=== PATIENT | female | born 1970 | race Caucasian/White ===

== ENCOUNTER → 2017-03-09 | Emergency (ER) | payer OTHER ==
[~2017-03-09] MED LIST: Acetaminophen TAB* 325 MG PO ONE
--- NOTE | 2017-03-09 12:31 | RAD ---
INDICATION: Right shoulder pain. TECHNIQUE: 4 views of the right shoulder were obtained. FINDINGS: The bones are in normal alignment. No fracture is seen. Joint spaces appear maintained. IMPRESSION: NEGATIVE EXAM.
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
[2017-03-09 12:48] VITALS: BP 134/75
== END | disposition home or self-care (01) ==
LOC: ED 10:34
DX: M79.601 Pain in right arm (principal); Z87.891 Personal history of nicotine dependence
CPT/HCPCS: 99282; A9270-GY

== ENCOUNTER 2017-03-12 16:09 | Emergency (ER) | payer SELFPAY ==
[2017-03-12] MEDS ORDERED: Ketorolac INJ* 60 MG/2 ML VIAL IM ONE (16:22)
[2017-03-12 16:23] VITALS: BP 127/51
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
== END 2017-03-12 17:14 | disposition home or self-care (01) ==
LOC: ED 16:09
DX: S99.921A Unspecified injury of right foot, initial encounter (principal); M79.671 Pain in right foot; Z87.891 Personal history of nicotine dependence; X58.XXXA Exposure to other specified factors, initial encounter; Y93.9 Activity, unspecified; Y92.9 Unspecified place or not applicable
CPT/HCPCS: 96372; 99281; J1885

== ENCOUNTER 2017-06-01 20:26 | Emergency (ER) | payer OTHER ==
[2017-06-01] MEDS ORDERED: Meclizine TAB* 12.5 MG PO ONE (22:06)
[2017-06-01 22:17] LABS: Hematocrit 35 % (35-47); Hemoglobin 11.8 g/dl (12.0-16.0); Mean Corpuscular HGB Conc 33 g/dl (31-36); Mean Corpuscular Hemoglobin 29 pg (27-31); Mean Corpuscular Volume 85 fL (80-97); Mean Platelet Volume 8 um3 (7.4-10.4); Red Blood Count 4.13 10^6/ul (4.0-5.4); Red Cell Distribution Width 14 % (10.5-15); White Blood Count 11.1 10^3/ul (3.5-10.8)
[2017-06-01 22:27] LABS: Urine Bacteria 3+ (Absent); Urine Bilirubin Negative (Negative); Urine Glucose Negative (Negative); Urine Nitrite Positive (Negative)
[2017-06-01 22:28] LABS: Albumin 3.9 g/dL (3.2-5.2); Calcium 9.2 mg/dL (8.6-10.3); EGFR African American 96.5 (>60); EGFR Non-African American 75.1 (>60); Globulin 3.3 g/dL (2-4); Potassium 2.9 mmol/L (3.5-5.0); Total Bilirubin 0.4 mg/dL (0.2-1.0); Total Protein 7.2 g/dL (6.4-8.9)
[2017-06-01 22:41] LABS: TSH (Thyroid Stimulating Horm) 0.86 mcIU/mL (0.34-5.60)
[2017-06-01 23:06] VITALS: BP 118/49
--- NOTE | 2017-06-01 23:11 | ED ---
I, Oh,Soohtoro, scribed for Fernando Givens MD on 06/01/17 at 2149 . Dizziness - HPI Summary HPI Summary: This 46 y/o female presents to ED for room spinning dizziness at 1645 PM today. 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 Negative tinnitus. Positive midsternal chest pain, but pt dismisses stating that CP has been recurrent since her childhood. Pt decided to visit ED due to her concern over room spinning dizziness. Change of position does not worsen the dizziness. Closing eyes makes the dizziness worse. - History Of Current Complaint Chief Complaint: EDChestPainROMI Stated Complaint: CHEST PAIN Time Seen by Provider: 06/01/17 20:37 Hx Obtained From: Patient, Medical Records Onset/Duration: Resolved Timing: Intermittent Episode Lasting Character: Room Spinning Aggravating Factor(s): Other - closing her eyes Alleviating Factor(s): Nothing Associated Signs And Symptoms: Positive: Chest Pain. Negative: Tinnitus, Fever - Allergies/Home Medications Allergies/Adverse Reactions: Allergies Allergy/AdvReac Type Severity Reaction Status Date / Time Adhesive Tape Allergy Severe rash, itchy Verified 05/06/17 12:01 control Allergy Severe nauseated Uncoded 05/06/17 12:01 PMH/Surg Hx/FS Hx/Imm Hx Endocrine/Hematology History: Reports: Hx Thyroid Disease, Hx Anemia - hx of blood transfusion Denies: Hx Diabetes Cardiovascular History: Reports: Hx Hypertension Denies: Hx Pacemaker/ICD GI History: Reports: Hx Gastroesophageal Reflux Disease History: Reports: Hx Kidney Stones - in past , none recent Denies: Hx Dialysis, Hx Renal Disease Musculoskeletal History: Reports: Hx Arthritis - OSTEOARTHRITIS Sensory History: Reports: Hx Contacts or Glasses Denies: Hx Hearing Aid Opthamlomology History: Reports: Hx Contacts or Glasses Neurological History: Reports: Other Neuro Impairments/Disorders - DEVELOPMENTAL DELAY Psychiatric History: Denies: Hx Panic Disorder - Cancer History Hx Chemotherapy: No - Surgical History Surgery Procedure, Year, and Place: OVARY REMOVED AGE 15 FOR CYST. TOTAL HYSTERECTOMY DUE TO CERVICAL CA 2000. EXPLORATORY SURGERY 2003. GALLBLADDER 2013 Hx Anesthesia Reactions: No Infectious Disease History: No Infectious Disease History: Denies: Traveled Outside the [place] in Last 30 Days - Family History Known Family History: Positive: Cardiac Disease - Social History Alcohol Use: None Substance Use Type: Reports: None Smoking Status (MU): Former Smoker Amount Used/How Often: smoked for 4 years 3-4 cig a day Review of Systems Negative: Fever Negative: Other - tinnitus Positive: Chest Pain - acute on recurrent Neurological: Other - Positive for room-spinning dizziness All Other Systems Reviewed And Are Negative: Yes Physical Exam Triage Information Reviewed: Yes Vital Signs On Initial Exam: Initial Vitals Temp Pulse Resp BP Pulse Ox 98.0 F 68 16 130/65 100 06/01/17 20:47 06/01/17 20:47 06/01/17 20:47 06/01/17 20:47 06/01/17 20:47 Vital Signs Reviewed: Yes Appearance: Positive: Well-Appearing, No Pain Distress Skin: Positive: Warm, Skin Color Reflects Adequate Perfusion Head/Face: Positive: Normal Head/Face Inspection Eyes: Positive: EOMI, FAB Neck: Positive: Supple, Nontender Respiratory/Lung Sounds: Positive: Clear to Auscultation, Breath Sounds Present Cardiovascular: Positive: RRR, Pulses are Symmetrical in both Upper and Lower Extremities Abdomen Description: Positive: Nontender, Soft Musculoskeletal: Positive: Strength/ROM Intact Neurological: Positive: Sensory/Motor Intact, Alert, Oriented to Person Place, Time Psychiatric: Positive: Affect/Mood Appropriate AVPU Assessment: Alert - Eros Coma Scale Coma Scale Total: 15 Diagnostics - Vital Signs Vital Signs Temp Pulse Resp BP Pulse Ox 06/01/17 20:53 72 06/01/17 20:47 98.0 F 68 16 130/65 100 - Laboratory Lab Results: Lab Results 06/01/17 06/01/17 06/01/17 Range/Units 21:30 21:30 21:30 WBC 11.1 H (3.5-10.8) 10^3/ul RBC 4.13 (4.0-5.4) 10^6/ul Hgb 11.8 L (12.0-16.0) g/dl Hct 35 (35-47) % MCV 85 (80-97) fL MCH 29 (27-31) pg MCHC 33 (31-36) g/dl RDW 14 (10.5-15) % Plt Count 377 (150-450) 10^3/ul MPV 8 (7.4-10.4) um3 Neut % (Auto) 71.0 (38-83) % Lymph % (Auto) 20.1 L (25-47) % Lasalle % (Auto) 6.6 (1-9) % Eos % (Auto) 1.8 (0-6) % Baso % (Auto) 0.5 (0-2) % Absolute Neuts (auto) 7.9 H (1.5-7.7) 10^3/ul Absolute Lymphs (auto) 2.2 (1.0-4.8) 10^3/ul Absolute Monos (auto) 0.7 (0-0.8) 10^3/ul Absolute Eos (auto) 0.2 (0-0.6) 10^3/ul Absolute Basos (auto) 0.1 (0-0.2) 10^3/ul Absolute Nucleated RBC 0.01 10^3/ul Nucleated RBC % 0.1 Sodium 138 (133-145) mmol/L Potassium 2.9 L (3.5-5.0) mmol/L Chloride 101 (101-111) mmol/L Carbon Dioxide 28 (22-32) mmol/L Anion Gap 9 (2-11) mmol/L BUN 18 (6-24) mg/dL Creatinine 0.82 (0.51-0.95) mg/dL Est GFR ( Amer) 96.5 (>60) Est GFR (Non-Af Amer) 75.1 (>60) BUN/Creatinine Ratio 22.0 H (8-20) Glucose 122 H (70-100) mg/dL Lactic Acid 1.7 (0.5-2.0) mmol/L Calcium 9.2 (8.6-10.3) mg/dL Magnesium 2.0 (1.9-2.7) mg/dL Total Bilirubin 0.40 (0.2-1.0) mg/dL AST 19 (13-39) U/L ALT 22 (7-52) U/L Alkaline Phosphatase 90 (34-104) U/L Troponin I 0.00 (<0.04) ng/mL Total Protein 7.2 (6.4-8.9) g/dL Albumin 3.9 (3.2-5.2) g/dL Globulin 3.3 (2-4) g/dL Albumin/Globulin Ratio 1.2 (1-3) TSH 0.86 (0.34-5.60) mcIU/mL Urine Color Urine Appearance Urine pH (5-9) Ur Specific Lenore (1.010-1.030) Urine Protein (Negative) Urine Ketones (Negative) Urine Blood (Negative) Urine Nitrate (Negative) Urine Bilirubin (Negative) Urine Urobilinogen (Negative) Ur Leukocyte Esterase (Negative) Urine WBC (Auto) (Absent) Urine RBC (Auto) (Absent) Ur Squamous Epith Cells (Absent) Amorphous Crystals (Absent) Urine Bacteria (Absent) Urine Glucose (Negative) 06/01/17 Range/Units 21:50 WBC (3.5-10.8) 10^3/ul RBC (4.0-5.4) 10^6/ul Hgb (12.0-16.0) g/dl Hct (35-47) % MCV (80-97) fL MCH (27-31) pg MCHC (31-36) g/dl RDW (10.5-15) % Plt Count (150-450) 10^3/ul MPV (7.4-10.4) um3 Neut % (Auto) (38-83) % Lymph % (Auto) (25-47) % Lasalle % (Auto) (1-9) % Eos % (Auto) (0-6) % Baso % (Auto) (0-2) % Absolute Neuts (auto) (1.5-7.7) 10^3/ul Absolute Lymphs (auto) (1.0-4.8) 10^3/ul Absolute Monos (auto) (0-0.8) 10^3/ul Absolute Eos (auto) (0-0.6) 10^3/ul Absolute Basos (auto) (0-0.2) 10^3/ul Absolute Nucleated RBC 10^3/ul Nucleated RBC % Sodium (133-145) mmol/L Potassium (3.5-5.0) mmol/L Chloride (101-111) mmol/L Carbon Dioxide (22-32) mmol/L Anion Gap (2-11) mmol/L BUN (6-24) mg/dL Creatinine (0.51-0.95) mg/dL Est GFR ( Amer) (>60) Est GFR (Non-Af Amer) (>60) BUN/Creatinine Ratio (8-20) Glucose (70-100) mg/dL Lactic Acid (0.5-2.0) mmol/L Calcium (8.6-10.3) mg/dL Magnesium (1.9-2.7) mg/dL Total Bilirubin (0.2-1.0) mg/dL AST (13-39) U/L ALT (7-52) U/L Alkaline Phosphatase (34-104) U/L Troponin I (<0.04) ng/mL Total Protein (6.4-8.9) g/dL Albumin (3.2-5.2) g/dL Globulin (2-4) g/dL Albumin/Globulin Ratio (1-3) TSH (0.34-5.60) mcIU/mL Urine Color Yellow Urine Appearance Cloudy Urine pH 5.0 (5-9) Ur Specific Lenore 1.006 L (1.010-1.030) Urine Protein 1+(30 mg/dl) H (Negative) Urine Ketones Negative (Negative) Urine Blood 2+ H (Negative) Urine Nitrate Positive H (Negative) Urine Bilirubin Negative (Negative) Urine Urobilinogen Negative (Negative) Ur Leukocyte Esterase 3+ H (Negative) Urine WBC (Auto) 3+(>20/hpf) H (Absent) Urine RBC (Auto) Absent (Absent) Ur Squamous Epith Cells Present H (Absent) Amorphous Crystals Present H (Absent) Urine Bacteria 3+ H (Absent) Urine Glucose Negative (Negative) Result Diagrams: 06/01/17 21:30 06/01/17 21:30 Lab Statement: Any lab studies that have been ordered have been reviewed, and results considered in the medical decision making process. - CT Brain CT Interpretation: No Acute Changes - No acute ozzie parenchymal abnormality. No hemorrhage, mass, or acute territorial infarct. Clear visualized paranasal sinuses. Visualized mastoid air cells clear. CT Interpretation Completed By: Radiologist - EKG 2043 Cardiac Rate: NL - at 67 bpm EKG Rhythm: Sinus Rhythm EKG Interpretation: Nonspecific changes Dizzy Course/Dx - Course Course Of Treatment: Ms. Carrington told me she has had CP since she was a teenager and that that's not why she's here. She C/O the room spinning when she closed her eyes. Her W/U was negative and her symptoms resolved with meclizine as did her nystagmus. Her urine is equivocal and I will treat it awaiting C&S. - Diagnoses Provider Diagnoses: Vertigo, UTI (urinary tract infection) Discharge - Discharge Plan Condition: Stable Disposition: HOME Patient Education Materials: Vertigo (ED), Urinary Tract Infection in Women (ED ) Referrals: Amira Fernández, MARINE SERVICES TECHNICIAN [Primary Care Provider] - 2 Days The documentation as recorded by the Victor Manuel pina Soohyun accurately reflects the service I personally performed and the decisions made by me, Fernando Givens MD.
--- NOTE | 2017-06-02 07:20 | RAD ---
INDICATION: Vertigo COMPARISON: There are no prior studies available for comparison. TECHNIQUE: Contiguous axial sections of the brain were obtained from the skull base to the vertex without contrast. FINDINGS: The ventricles, cisterns and sulci are within normal limits. No significant focal abnormality or mass effect is seen. There is no evidence for hemorrhage. No significant focal osseous abnormality is seen. The visualized portion of the paranasal sinuses and mastoid air cells appear clear. IMPRESSION: NO EVIDENCE FOR GROSS ACUTE INFARCT, MASS EFFECT OR HEMORRHAGE.
== END 2017-06-01 23:06 | disposition home or self-care (01) ==
LOC: ED 20:26
DX: N39.0 Urinary tract infection, site not specified (principal); R07.9 Chest pain, unspecified; R42 Dizziness and giddiness; Z87.891 Personal history of nicotine dependence; Z86.79 Personal history of other diseases of the circulatory system
CPT/HCPCS: 36415; 70450; 80053; 81003; 81015; 83605; 83735; 84443; 84484; 85025; 87077; 87086; 87186; 93005; 99283; A9270-GY

== ENCOUNTER 2017-11-05 16:02 | Emergency (ER) | payer OTHER ==
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
--- NOTE | 2017-11-05 17:21 | RAD ---
Indication: Right Knee pain after fall. 3 views of the right knee demonstrates no fracture. No other bone or joint abnormality is noted. There is suggestion of a loose body present in the joint space. IMPRESSION: No fracture is noted. Suggestion of a loose body in the joint space.
[2017-11-05] MEDS ORDERED: Acetaminophen TAB* 325 MG PO ONE (17:47)
[2017-11-05 18:09] VITALS: BP 139/87
--- NOTE | 2017-11-05 18:12 | ED ---
Rolf Mendez Gabriel, scribed for Manuel Jimenez MD on 11/05/17 at 1617 . Lower Extremity - HPI Summary HPI Summary: This patient is a 47 year old F BBIA to [facility] s/p mechanical fall that occurred [employer]. Patient was walking up onto a curb when her left leg gave out. The patient rates the pain 6/10 in severity. Patient reports right sided pain at jaw, elbow , knee, face, and hand as well as tingling in her right hand. Patient had a CVA a few months ago. Patient is currently able to ambulate. - History of Current Complaint Chief Complaint: EDExtremityLower Stated Complaint: FALL Time Seen by Provider: 11/05/17 16:09 Hx Obtained From: Patient Mechanism Of Injury: Fall From A Standing Position Onset of Pain: Immediate Onset/Duration: Still Present Severity Initially: Moderate Severity Currently: Moderate Pain Intensity: 6 Pain Scale Used: 0-10 Numeric Timing: Constant Location: Is Diffuse - right side of body Alleviating Factor(s): Other - right sided pain at jaw, elbow, knee, face, and hand as well as tingling in her right hand Able to Bear Weight: Yes - Allergies/Home Medications Allergies/Adverse Reactions: Allergies Allergy/AdvReac Type Severity Reaction Status Date / Time Adhesive Tape Allergy Severe rash, itchy Verified 05/06/17 12:01 control Allergy Severe nauseated Uncoded 05/06/17 12:01 PMH/Surg Hx/FS Hx/Imm Hx Endocrine/Hematology History: Reports: Hx Thyroid Disease, Hx Anemia - hx of blood transfusion Denies: Hx Diabetes Cardiovascular History: Reports: Hx Hypertension Denies: Hx Pacemaker/ICD GI History: Reports: Hx Gastroesophageal Reflux Disease History: Reports: Hx Kidney Stones - in past , none recent Denies: Hx Dialysis, Hx Renal Disease Musculoskeletal History: Reports: Hx Arthritis - OSTEOARTHRITIS Sensory History: Reports: Hx Contacts or Glasses Denies: Hx Hearing Aid Opthamlomology History: Reports: Hx Contacts or Glasses Neurological History: Reports: Hx CVA, Other Neuro Impairments/Disorders - DEVELOPMENTAL DELAY Psychiatric History: Denies: Hx Panic Disorder - Cancer History Hx Chemotherapy: No - Surgical History Surgery Procedure, Year, and Place: OVARY REMOVED AGE 15 FOR CYST. TOTAL HYSTERECTOMY DUE TO CERVICAL CA 2000. EXPLORATORY SURGERY 2003. GALLBLADDER 2013 Hx Anesthesia Reactions: No Infectious Disease History: No Infectious Disease History: Denies: Traveled Outside the [place] in Last 30 Days - Family History Known Family History: Positive: Cardiac Disease - Social History Alcohol Use: None Substance Use Type: Reports: None Smoking Status (MU): Former Smoker Amount Used/How Often: smoked for 4 years 3-4 cig a day Review of Systems Positive: Other - right sided pain at jaw, elbow, knee, face Positive: Paresthesia - in right hand All Other Systems Reviewed And Are Negative: Yes Physical Exam - Summary Physical Exam Summary: VITAL SIGNS: Reviewed. GENERAL: Patient is a well-developed and nourished female who is lying comfortable in the stretcher. Patient is not in any acute respiratory distress. HEAD AND FACE: Swelling in the right side of face around the right side of the orbit accompanied by some swelling.. EYES: PERRLA, EOMI x 2, No injected conjunctiva, no nystagmus. EARS: Hearing grossly intact. Ear canals and tympanic membranes are within normal limits. MOUTH: Oropharynx within normal limits. NECK: Supple, trachea is midline, no adenopathy, no JVD, no carotid bruit, no c- spine tenderness, neck with full ROM. CHEST: Symmetric, no tenderness at palpation LUNGS: Clear to auscultation bilaterally. No wheezing or crackles. CVS: Regular rate and rhythm, S1 and S2 present, no murmurs or gallops appreciated. ABDOMEN: Soft, non-tender. No signs of distention. No rebound no guarding, and no masses palpated. Bowel sounds are normal. EXTREMITIES: Pain in the right knee without ecchymosis and deformity. Knee still has full ROM. Right hand/right elbow no swelling, ecchymosis, good ROM, good strength, good pulses NEURO: Alert and oriented x 3. No acute neurological deficits. Speech is normal and follows commands. SKIN: Dry and warm Triage Information Reviewed: Yes Vital Signs On Initial Exam: Initial Vitals Temp Pulse Resp BP Pulse Ox 98.1 F 79 18 147/98 100 11/05/17 16:10 11/05/17 16:10 11/05/17 16:10 11/05/17 16:10 11/05/17 16:10 Vital Signs Reviewed: Yes Diagnostics - Vital Signs Vital Signs Temp Pulse Resp BP Pulse Ox 11/05/17 16:10 98.1 F 79 18 147/98 100 - Laboratory Lab Statement: Any lab studies that have been ordered have been reviewed, and results considered in the medical decision making process. - Radiology knee xray Radiology Interpretation Completed By: Radiologist - No fracture is noted. Suggestion of a loose body in the joint space. ED physician has reviewed this radiology report. - CT ct maxillofacial CT Interpretation Completed By: Radiologist - No fracture of the facial bones is identified. ED physician has reviewed this radiology report. Lower Extremity Course/Dx - Course Assessment/Plan: This patient is a 47 year old F BBIA to [facility] s/p mechanical fall that occurred [employer]. Patient was walking up onto a curb when her left leg gave out. The patient rates the pain 6/10 in severity. Patient reports right sided pain at jaw, elbow, knee, face, and hand as well as tingling in her right hand. Patient had a CVA a few months ago. Patient is currently able to ambulate. .Patient is ambulatory and ambulates without difficulty. X-ray of knee reveals No fracture is noted. Suggestion of a loose body in the joint space. CT maxillofacial reveals, No fracture of the facial bones is identified. In the ED course patient was given Tylenol and will be discharged with follow up from PCP. Patient is hemodynamically stable and alert oriented x3. - Diagnoses Differential Diagnosis/HQI/PQRI: Positive: Contusion, Fracture (Closed), Sprain , Strain Provider Diagnoses: Facial contusion, mechanical fall, Knee pain Discharge - Discharge Plan Condition: Stable Disposition: HOME Patient Education Materials: Knee Pain (ED), Facial Contusion (ED) Referrals: Amira Fernández IGNITION SPECIALIST [Primary Care Provider] - 3 Days Additional Instructions: RETURN TO EMERGENCY DEPARTMENT FOR ANY NEW OR WORSENING SYMPTOMS The documentation as recorded by the Rolf pina Gabriel accurately reflects the service I personally performed and the decisions made by , Manuel Jimenez MD.
== END 2017-11-05 18:08 | disposition home or self-care (01) ==
LOC: ED 16:02
DX: S00.83XA Contusion of other part of head, initial encounter (principal); W10.1XXA Fall (on)(from) sidewalk curb, initial encounter; Y93.01 Activity, walking, marching and hiking; Y92.9 Unspecified place or not applicable; M25.561 Pain in right knee; Z88.8 Allergy status to other drugs, medicaments and biological substances; Z87.891 Personal history of nicotine dependence
CPT/HCPCS: 70486; 99282; A9270-GY

== ENCOUNTER 2017-12-07 09:51 | Inpatient (IN) | payer OTHER ==
--- NOTE | 2017-11-24 20:56 | HP ---
HISTORY AND PHYSICAL: DATE OF ADMISSION/SURGERY: 12/07/17 DATE OF OFFICE VISIT: 11/24/17 SURGEON: Katie Hall MD * (DICTATED BY LEXIS AGRAWAL) PROCEDURE: Left total hip arthroplasty. CHIEF COMPLAINT: Left hip pain. HISTORY OF PRESENT ILLNESS: Ms. Carrington is a 47-year-old female with left hip pain secondary to end-stage osteoarthritis. She has failed conservative management and elected to proceed with a left total hip arthroplasty, which is scheduled for 12/07/[address] Hall. PAST MEDICAL HISTORY: GERD, hypothyroidism, and history of cervical cancer. PAST SURGICAL HISTORY: Cholecystectomy, hysterectomy, oophorectomy, and exploratory laparoscopy. CURRENT MEDICATIONS: 1. Nabumetone 3 times a day. 2. Estradiol 1 mg. 3. Nortriptyline 50 mg. 4. Diphenhydramine 25 mg. 5. Vitamin D3. 6. Omeprazole 40 mg daily. 7. Hydrochlorothiazide 25 mg daily. 8. Levothyroxine 100 mcg daily. 9. Cholestyramine. ALLERGIES: None. FAMILY HISTORY: Lung cancer. SOCIAL HISTORY: She is a 47-year-old female. She lives with a roommate. She does not smoke or use drugs. She uses occasional alcohol. REVIEW OF SYSTEMS: A complete 14-point review of systems was reviewed with the patient, was positive for hypothyroidism and GERD. She denies history of DVT, PE, hepatitis C, or HIV. PHYSICAL EXAMINATION GENERAL: Well-developed, well-nourished, in no acute distress. VITAL SIGNS: She stands 5 feet 9 inches tall, weighs 185 pounds. Her blood pressure is 128/82 and her heart rate 79. HEENT: Normocephalic, atraumatic. NECK: Supple. No palpable lymph nodes. PULMONARY: The lungs are clear to auscultation bilaterally. CARDIO: Regular rate and rhythm. Strong S1, S2. ABDOMEN: Soft, nontender, and nondistended. MUSCULOSKELETAL: Left lower extremity, the skin is intact. There are no open wounds or abrasions. She walks with an antalgic type gait favoring her left hip. She has decreased internal and external rotation of the left hip, which reproduces pain. 2+ dorsalis pedis pulses. Intact sensation to lower extremities. Muscle group strengths are intact at 5/5. NEUROLOGICAL: She is alert and oriented x3. Cranial nerves II through XII are intact. ASSESSMENT AND PLAN: Ms. Carrington is a 47-year-old female with left hip pain secondary to advanced osteoarthritis. She has failed conservative management and has elected to proceed with the left total hip arthroplasty, which is scheduled for 12/07/[address] Hall discussed the risks and benefits of the surgery at today's visit and all of her questions were answered. Coumadin, Colace, and Percocet were sent to her pharmacy for postoperative pain control and DVT prophylaxis. She will see Dr. Hall back in 2 weeks after the surgery. LEXIS AGRAWAL [id number]/[facility] #: [id number] MTDD
[~2017-12-07 09:51] MED LIST changes: -Acetaminophen TAB* 325 MG PO ONE; +Buffered Lidocaine 0.9% SYRIN* 5 ML/SYR SYRINGE INTRADERM ONE
[2017-12-07] MEDS ORDERED: ceFAZolin 2 GM (*##) 2 GM/100 ML BAG USE CEFA2SOL IVPB ONE (10:22)
[2017-12-07] MEDS ORDERED: Buffered Lidocaine 0.9% SYRIN* 5 ML/SYR SYRINGE ONE (10:22)
[2017-12-07] MEDS ORDERED: Midazolam* 1 MG/ML 5 ML VIAL (5 MG) ONE (12:23)
[2017-12-07] MEDS ORDERED: fentaNYL* 50 MCG/ML 2 ML VIAL (100 MCG VIAL) ONE (12:23)
--- NOTE | 2017-12-07 12:40 | RAD ---
INDICATION: Right knee pain COMPARISON: November 05, 2017 TECHNIQUE: AP, lateral, and sunrise were obtained. FINDINGS: There is no acute bony change. There is minor patellofemoral osteoarthritis. There is a possible small loose body. There is no definite effusion. No additional findings. IMPRESSION: NO ACUTE FRACTURE. MINOR OSTEOARTHRITIS
[2017-12-07] MEDS ORDERED: Morphine PF AMP (0.5MG/ML)* 5 MG/10 ML AMP ONE (13:49)
[2017-12-07] MEDS ORDERED: Propofol* 10 MG/ML 20 ML BTL IV PUSH ONE (14:07)
[2017-12-07] MEDS ORDERED: Bupivacaine 0.5% SDV PF* 10-30ML VIAL ONE (14:08)
[2017-12-07] MEDS ORDERED: EPHEDrine (Pressors)* 50 MG/ML VIAL ONE ×2 (14:23→14:52)
[2017-12-07] MEDS ORDERED: Polyethylene Glycol 3350* 17 GM PACKET PO PRN (14:30)
[2017-12-07] MEDS ORDERED: Bisacodyl SUPP* 10 MG SUPP PR PRN (14:30)
[2017-12-07] MEDS ORDERED: Magnesium Hydroxide LIQ* 30 ML UDC PO PRN (14:30)
[2017-12-07] MEDS ORDERED: Acetaminophen TAB* 325 MG PO PRN (14:30)
[2017-12-07] MEDS ORDERED: diPHENhydraMINE IV* 50 MG/ML 1 ml VIAL (BENADRYL) IV PRN ×2 (14:30→14:43)
[2017-12-07] MEDS ORDERED: Cyclobenzaprine TAB* 10 MG PO PRN (14:30)
[2017-12-07] MEDS ORDERED: Ondansetron INJ* 2 MG/ML VIAL IV PRN ×2 (14:43)
[2017-12-07] MEDS ORDERED: HYDROmorphone INJ* 1 MG/ML CARPUJECT SYRINGE IV PRN (14:43)
[2017-12-07] MEDS ORDERED: DiMENhydriNATE IV* 50 MG/ML VIAL IV PUSH PRN (14:43)
[2017-12-07] MEDS ORDERED: HYDROcodone/ACETAMIN 5-325 MG* 1 TAB PO PRN (14:43)
[2017-12-07] MEDS ORDERED: fentaNYL* 50 MCG/ML 2 ML VIAL (100 MCG VIAL) IV PRN (14:43)
[2017-12-07] MEDS ORDERED: Metoclopramide IV* 5 MG/ML 2 ML VIAL IV PRN ×2 (14:43)
[2017-12-07] MEDS ORDERED: Nalbuphine* 20 MG/ML 1 ML VIAL IV PRN (14:43)
[2017-12-07] MEDS ORDERED: Naloxone* 0.4 MG/ML 1 ML VIAL IV PRN ×2 (14:43)
[2017-12-07] MEDS ORDERED: ceFAZolin 1 GM in Dextrose (*) 1 GM/50 ML BAG IVPB SCH (15:00)
[2017-12-07] MEDS ORDERED: diPHENhydraMINE IV* 50 MG/ML 1 ml VIAL (BENADRYL) ONE (16:54)
[2017-12-07] MEDS ORDERED: Ondansetron INJ* 2 MG/ML VIAL ONE (17:19)
[2017-12-07] MEDS ORDERED: DiMENhydriNATE IV* 50 MG/ML VIAL ONE (17:43)
--- NOTE | 2017-12-07 18:00 | RAD ---
Indication: LEFT total hip replacement. Comparison: November 10, 2017 Technique: Crosstable AP pelvis and LEFT proximal femur Report: Acetabular prosthetic component and femur test fit/reamer component in place. No periprosthetic fracture evident. Surrounding soft tissue edema and subcutaneous emphysema. IMPRESSION: Intraoperative control film.
--- NOTE | 2017-12-07 19:13 | RAD ---
Indication: Postop LEFT hip replacement. Comparison: Intraoperative exam of the same date. Technique: Low AP pelvis and AP and crosstable lateral views LEFT hip. Report: Noncemented LEFT total hip prosthesis in place with normal alignment. No periprosthetic fracture evident. Overlying soft tissue edema and subcutaneous emphysema. Bilateral pelvic surgical clips. IMPRESSION: Unremarkable immediate postop appearance following LEFT total hip replacement.
[2017-12-07] MEDS ORDERED: Warfarin TAB(*) 6 MG PO ONE (20:00)
[2017-12-07] MEDS: Nortriptyline CAP* 25 MG PO SCH (20:59)
[2017-12-07] MEDS: Omeprazole CAP* 20 MG PO SCH (21:00)
[2017-12-07] MEDS: Docusate CAP* 100 MG PO SCH (21:02)
[2017-12-07] MEDS: Magnesium Hydroxide LIQ* 30 ML UDC PO SCH (21:02)
[2017-12-07] MEDS: ceFAZolin 1 GM* Q8H x 3 doses IVPB SCH ×2 (22:05)
[2017-12-08] MEDS: HYDROcodone/ACETAMIN 5-325 MG* 1 TAB PO PRN ×2 (00:19→05:46)
[2017-12-08] MEDS: Levothyroxine TAB* 100 MCG TAB PO SCH (05:47)
[2017-12-08 05:48] LABS: Hematocrit 29 % (35-47); Hemoglobin 9.7 g/dl (12.0-16.0); Mean Platelet Volume 8 um3 (7.4-10.4); Platelet Count 237 10^3/ul (150-450)
[2017-12-08] MEDS: ceFAZolin 1 GM* Q8H x 3 doses IVPB SCH ×4 (05:54→14:22)
[2017-12-08] MEDS ORDERED: Morphine INJ* 2 MG/ML 1 ML CARPUJECT IV PRN (05:55)
[2017-12-08] MEDS ORDERED: Ondansetron TAB* 4 MG PO PRN (05:55)
[2017-12-08] MEDS ORDERED: oxyCODONE TAB* 5 MG TAB PO PRN (05:55)
[2017-12-08] MEDS ORDERED: diPHENhydraMINE IV* 50 MG/ML 1 ml VIAL (BENADRYL) IV PRN (05:55)
[2017-12-08] MEDS ORDERED: Ondansetron INJ* 2 MG/ML VIAL IV PRN (05:55)
[2017-12-08 05:58] LABS: INR 0.94 (0.77-1.02)
[2017-12-08 06:04] LABS: EGFR Non-African American 85.5 (>60)
[2017-12-08] MEDS: Magnesium Hydroxide LIQ* 30 ML UDC PO SCH ×2 (08:08→20:46)
[2017-12-08] MEDS: Omeprazole CAP* 20 MG PO SCH ×3 (08:09→20:22)
[2017-12-08] MEDS: Docusate CAP* 100 MG PO SCH ×2 (08:09→20:46)
[2017-12-08] MEDS: Hydrochlorothiazide TAB* 25 MG PO SCH (08:09)
[2017-12-08] MEDS: oxyCODONE/Acetamin 5/325 MG* TAB PO PRN ×3 (09:03→19:22)
[2017-12-08] MEDS: ESTRADIOL 1 MG PO SCH ×2 (09:04→17:13)
--- NOTE | 2017-12-08 10:06 | PN ---
Progress Note - Progress Note Date of Service: 12/08/17 SOAP: Subjective: [] Patient seen OOB in chair. She reports left hip pain but is reasonably comfortable. Denies CP, SOB, fever, chills, nausea, dizziness and leg numbness. Objective: [] Vital Signs Temp 98.5 F 12/08/17 08:06 Pulse 71 12/08/17 08:06 Resp 20 12/08/17 09:03 BP 122/43 12/08/17 08:06 Pulse Ox 94 12/08/17 08:06 Intake & Output 12/07/17 12/08/17 12/08/17 18:59 06:59 18:59 Intake Total 2325 1298 246 Output Total 550 350 Balance 1775 948 246 Weight 184 lb Intake: IV Fluids 2300 948 246 ABX - CEFAZOLIN 50 LR 2300 948 196 IVPB 50 ABX - CEFAZOLIN 50 Oral 25 300 Output: Bah 350 350 Estimated Blood Loss 200 Laboratory Last Values Hgb 9.7 g/dl (12.0-16.0) L 12/08/17 05:05 Hct 29 % (35-47) L 12/08/17 05:05 Plt Count 237 10^3/ul (150-450) 12/08/17 05:05 MPV 8 um3 (7.4-10.4) 12/08/17 05:05 INR (Anticoag Therapy) 0.94 (0.77-1.02) 12/08/17 05:05 Sodium 138 mmol/L (133-145) 12/08/17 05:05 Potassium 3.9 mmol/L (3.5-5.0) 12/08/17 05:05 Chloride 104 mmol/L (101-111) 12/08/17 05:05 Carbon Dioxide 30 mmol/L (22-32) 12/08/17 05:05 Anion Gap 4 mmol/L (2-11) 12/08/17 05:05 BUN 21 mg/dL (6-24) 12/08/17 05:05 Creatinine 0.73 mg/dL (0.51-0.95) 12/08/17 05:05 Est GFR ( Amer) 109.9 (>60) 12/08/17 05:05 Est GFR (Non-Af Amer) 85.5 (>60) 12/08/17 05:05 BUN/Creatinine Ratio 28.8 (8-20) H 12/08/17 05:05 Glucose 108 mg/dL (70-100) H 12/08/17 05:05 Calcium 8.2 mg/dL (8.6-10.3) L 12/08/17 05:05 General: Well appearing, NAD LLE: Left hip with dressing CDI, no surrounding erythema. Thigh is soft and supple. DF/PF intact. 2+ DP pulse. Sensation intact distally. Capillary refill less than 2 seconds BL LE: Calves supple and nontender without erythema, edema or palpable cords. Assessment: []POD 1 SP left total hip arthroplasty 12/07, Dr Hall Plan: []WBAT PT/OT Lovenox, coumadin 6 mg today Plan for DC tomorrow
[2017-12-08] MEDS: Enoxaparin(*) 30 MG/0.3 ML SYR SUBCUT SCH (12:06)
[2017-12-08] MEDS ORDERED: Warfarin TAB(*) 6 MG PO ONE (17:00)
[2017-12-08] MEDS: CHOLESTYRAMINE RESIN PO SCH (20:25)
[2017-12-08] MEDS: Nortriptyline CAP* 25 MG PO SCH (20:46)
[2017-12-08] MEDS: diPHENhydraMINE PO* 25 MG PO SCH (20:46)
--- NOTE | 2017-12-08 23:05 | OP ---
DATE OF OPERATION: 12/07/17 - ROOM #332 DATE OF : 70 SURGEON: Katie Hall MD MEDICAL LABORATORY SCIENTIST: LEXIS Velez. Mr. Fraire did help throughout the procedure with preparation of the leg, wound retraction, manipulation of the hip, and wound closure. ANESTHESIOLOGIST: Zoe Mercer MD ANESTHESIA: Spinal. PRE-OP DIAGNOSIS: Severe end-stage degenerative osteoarthritis of the left hip joint. POST-OP DIAGNOSIS: Severe end-stage degenerative osteoarthritis of the left hip joint. OPERATIVE PROCEDURE: Left total hip arthroplasty. INDICATIONS: Ms. Carrington is a 47-year-old female with years of increasingly severe left hip pain. She failed conservative treatment with anti- inflammatories, physical therapy, and pain medications. Radiographs showed bone -on-bone arthritis. Due to continued pain and decreased quality of life, she elected to undergo left total hip arthroplasty. Informed consent was obtained from the patient. She understood the risks of surgery included, but were not limited to, bleeding, infection, damage to nearby structures, continued pain, need for further surgery, intraoperative fracture, nerve palsy, hardware failure or loosening, dislocation, leg length discrepancy, stroke, heart attack , blood clot, and . She wished to proceed. COMPLICATIONS: None. ESTIMATED BLOOD LOSS: 300 cc. SPECIMEN: Femoral head and acetabular reaming sent to Pathology. HARDWARE USED: This is uncemented [place] total hip hardware for the acetabular cup 50D Tritanium hemispherical shell. For the liner, a polyethylene 0-degree Trident X3 32D. For the stem, an Accolade TMZF size 2.5 with 127-degree neck. For the head, a Biolox ceramic V40 femoral head 32 +4. INTRAOPERATIVE FINDINGS: Intraoperatively, the patient was noted to have severe end-stage arthritis with complete loss of cartilage in the acetabulum and femoral head. She had significant acetabular osteophytes along the rim especially inferiorly. DESCRIPTION OF PROCEDURE: Ms. Carrington was identified in the preanesthesia unit. Her left lower extremity was marked as the correct operative side. Informed consent was signed and placed in the chart. The patient was taken to the operating room and placed under spinal anesthesia without difficulty. A Bah catheter was placed. The patient was placed in the right lateral decubitus position on the peg board with all bony prominences well padded. Left lower extremity was prepped and draped in the usual sterile fashion. Preop time-out was made to correctly identify the patient, side, and site. Appropriate perioperative antibiotics were given within 1 hour of incision. A 12-cm posterior hip incision was made with a 10 blade and carried down to the lateral fascial layer. Lateral fascial layer was incised in line with the skin incision. Charnley retractor was placed. The piriformis and conjoint tendons were identified. These were elevated off the posterolateral femur and tagged with Ethibond suture. Next, electrocautery was used to make a standard posterolateral capsular flap and this was also tagged with Ethibond suture. The hip was carefully dislocated. Lesser troch to center to the femoral head measured 58 mm. Oscillating saw was used to make the appropriate femoral neck cut. The femoral head was removed. Femur was carefully retracted anteriorly. After appropriate placement of the retractor, the acetabulum was well visualized. A long-handled knife was used to sharply remove any remaining labrum from the acetabular rim. The acetabulum did have significant osteophyte formation around it. The acetabulum was sequentially reamed up to a size 49. Bleeding subchondral bone was obtained. A 49 trial had good fit and stability. There was appropriate abduction angle and anteversion. A 50D Tritanium cluster hole shell was chosen. This was impacted into the acetabulum without difficulty. The shell was extremely stable. There was appropriate anteversion and abduction angles. A trial of X3 0-degree polyethylene liner 32D was chosen. This was impacted into the acetabulum without difficulty. Stability of the liner was checked and rechecked and noted to be stable. Next, attention was turned to preparation of the proximal femur. Box cut osteotome and canal finder were used to enter the proximal femur. The femur was sequentially broached up to a size 2.5. A 2.5 broach had excellent stability and appropriate anteversion. A 127 neck trial was chosen as well as a 32 +0 femoral head trial. Lesser troch to center of femoral head measured 53 mm. Therefore, the +4 head was chosen. Lesser troch to center of the femoral head measured 58 mm. The hip was reduced and taken through a range of motion. The hip was stable in all positions. Soft tissue tension and leg lengths were deemed to be appropriate. The hip was carefully dislocated. All trials were removed. Accolade TMZF size 2.5 with a 127-degree neck was chosen as the final implant. This was impacted into the femoral canal without difficulty. There was excellent stability and appropriate anteversion. A 32 +4 Biolox ceramic delta V40 femoral head was chosen and impacted onto the femoral neck. The hip was reduced and taken through range of motion. The hip was stable in all positions. The hip was copiously irrigated with sterile saline. Previously tagged tendons and capsule were reapproximated to the posterolateral femur through 2 trochanteric drill holes. The lateral fascial layer was closed using interrupted #1 Vicryls. The rest of the incision was closed in a layered fashion using 0 and 2-0 Vicryls. Skin was closed using running 3-0 Monocryl suture. A Dermabond was placed over this. Sterile Adaptic, 4x4s, and paper tape were used to cover the incision. The patient's anesthesia was reversed without difficulty. She was taken to the PACU in stable condition. Intended weightbearing with be weightbearing as tolerated. Intended DVT prophylaxis will be Coumadin with a Lovenox bridge. [id number]/[facility] #: [id number] DEBORAH
[2017-12-09 06:24] LABS: Hematocrit 26 % (35-47); Mean Platelet Volume 8 um3 (7.4-10.4); Platelet Count 224 10^3/ul (150-450)
[2017-12-09 07:04] LABS: INR 1.59 (0.77-1.02)
[2017-12-09] MEDS: Docusate CAP* 100 MG PO SCH ×2 (07:27→22:24)
[2017-12-09] MEDS: diPHENhydraMINE PO* 25 MG PO SCH ×2 (07:27→22:23)
[2017-12-09] MEDS: Hydrochlorothiazide TAB* 25 MG PO SCH (07:27)
[2017-12-09] MEDS: Levothyroxine TAB* 100 MCG TAB PO SCH (07:27)
[2017-12-09] MEDS: Omeprazole CAP* 20 MG PO SCH ×2 (07:28→17:23)
[2017-12-09] MEDS: oxyCODONE/Acetamin 5/325 MG* TAB PO PRN ×3 (07:28→22:25)
[2017-12-09] MEDS: ESTRADIOL 1 MG PO SCH (07:31)
[2017-12-09] MEDS: Magnesium Hydroxide LIQ* 30 ML UDC PO SCH ×2 (09:14→22:24)
[2017-12-09] MEDS: Enoxaparin(*) 30 MG/0.3 ML SYR SUBCUT SCH (11:14)
--- NOTE | 2017-12-09 11:38 | PN ---
Progress Note - Progress Note Date of Service: 12/09/17 SOAP: Subjective: []Patient is OOB in chair. She completed physical therapy this morning though she refused to attempt stairs due to pain and fear of heights. Prior to surgery she did use the stairs without difficulty with fear of heights. Patients pain is reported as a 9/10 before and after pain scale education. Denies CP, SOB, fever, chills, nausea or left leg numbness. Objective: [] Vital Signs Temp 99.4 F 12/09/17 03:22 Pulse 100 12/09/17 03:22 Resp 16 12/09/17 11:14 BP 104/51 12/09/17 03:22 Pulse Ox 98 12/09/17 03:22 Intake & Output 12/08/17 12/09/17 12/09/17 18:59 06:59 18:59 Intake Total 1151 360 400 Output Total 100 250 700 Balance 1051 110 -300 Intake: IV Fluids 321 ABX - CEFAZOLIN 105 LR 216 Oral 830 360 400 Output: Urine 100 250 700 Other: Estimated Void Small # Voids 2 Laboratory Last Values Hgb 9.0 g/dl (12.0-16.0) L 12/09/17 05:40 Hct 26 % (35-47) L 12/09/17 05:40 Plt Count 224 10^3/ul (150-450) 12/09/17 05:40 MPV 8 um3 (7.4-10.4) 12/09/17 05:40 INR (Anticoag Therapy) 1.59 (0.77-1.02) H 12/09/17 05:40 Sodium 138 mmol/L (133-145) 12/08/17 05:05 Potassium 3.9 mmol/L (3.5-5.0) 12/08/17 05:05 Chloride 104 mmol/L (101-111) 12/08/17 05:05 Carbon Dioxide 30 mmol/L (22-32) 12/08/17 05:05 Anion Gap 4 mmol/L (2-11) 12/08/17 05:05 BUN 21 mg/dL (6-24) 12/08/17 05:05 Creatinine 0.73 mg/dL (0.51-0.95) 12/08/17 05:05 Est GFR ( Amer) 109.9 (>60) 12/08/17 05:05 Est GFR (Non-Af Amer) 85.5 (>60) 12/08/17 05:05 BUN/Creatinine Ratio 28.8 (8-20) H 12/08/17 05:05 Glucose 108 mg/dL (70-100) H 12/08/17 05:05 Calcium 8.2 mg/dL (8.6-10.3) L 12/08/17 05:05 General: Sitting in chair. Well appearing, NAD. Eating breakfast appears comfortable LLE: Left hip with dressing CDI, no surrounding erythema. Thigh is soft and supple. DF/PF intact. 2+ DP pulse. Sensation intact distally. BL LE: Calves supple and nontender without erythema, edema or palpable cords. Assessment: []POD 2 SP left total hip arthroplasty 12/07, Dr Hall Plan: []WBAT PT/OT. Patient agrees to attempt the stairs this afternoon. Lovenox, coumadin 4 mg today Plan for DC to rehab when a bed is available
[2017-12-09] MEDS ORDERED: Warfarin TAB(*) 4 MG PO ONE (17:00)
[2017-12-09] MEDS: CHOLESTYRAMINE RESIN PO SCH (17:11)
[2017-12-09] MEDS ORDERED: CHOLESTYRAMINE RESIN PO SCH (18:00)
[2017-12-09] MEDS: Nortriptyline CAP* 25 MG PO SCH (22:23)
[2017-12-10 05:59] LABS: Hematocrit 26 % (35-47); Hemoglobin 8.7 g/dl (12.0-16.0); Mean Platelet Volume 8 um3 (7.4-10.4); Platelet Count 230 10^3/ul (150-450)
[2017-12-10 06:08] LABS: INR 2.8 (0.77-1.02)
[2017-12-10] MEDS: Docusate CAP* 100 MG PO SCH (07:44)
[2017-12-10] MEDS: Magnesium Hydroxide LIQ* 30 ML UDC PO SCH (07:44)
[2017-12-10] MEDS: diPHENhydraMINE PO* 25 MG PO SCH (07:45)
[2017-12-10] MEDS: Hydrochlorothiazide TAB* 25 MG PO SCH (07:45)
[2017-12-10] MEDS: Levothyroxine TAB* 100 MCG TAB PO SCH (07:46)
[2017-12-10] MEDS: Omeprazole CAP* 20 MG PO SCH (07:46)
[2017-12-10] MEDS: ESTRADIOL 1 MG PO SCH (07:47)
[2017-12-10] MEDS: oxyCODONE/Acetamin 5/325 MG* TAB PO PRN ×2 (07:47→13:40)
--- NOTE | 2017-12-10 10:50 | DS ---
DISCHARGE SUMMARY: DATE OF ADMISSION: 12/07/17 DATE OF DISCHARGE: 12/09/17 ATTENDING SURGEON: Dr. Katie Hall* (dictated by LEXIS Grant) CHIEF COMPLAINT: 1. Left hip pain. 2. GERD. 3. Hypothyroidism. 4. History of cervical cancer. DISCHARGE DIAGNOSES: 1. Status post left total hip arthroplasty. 2. Gastroesophageal reflux disease. 3. Hypothyroidism. 4. History of cervical cancer. PROCEDURE: Left total hip arthroplasty. CONSULTATIONS: 1. Physical Therapy. 2. Occupational Therapy. BRIEF HISTORY: Ms. Carrington is a very pleasant 47-year-old female with severe end- stage degenerative osteoarthritis of the left hip who failed conservative treatment and elected to undergo left total hip arthroplasty by Dr. Hall. HOSPITAL COURSE: The patient was admitted to [facility] on 12/07/17 where she underwent a left total hip arthroplasty, which was uncomplicated, with an estimated blood loss of 300 cc. Postoperatively, she recovered on the surgical short-stay unit. On postoperative day #2, her Bah was removed and she was voiding on her own without difficulty. She advanced to a regular diet and her pain was controlled with p.o. Percocet and oxycodone. She was restarted on her home medications. Her labs and vital signs remained stable. She is able to weightbear as tolerated on her left lower extremity. She advanced appropriately with physical therapy and occupational therapy. However , it was felt that rehabilitation will be better for her than returning home postoperatively. Her DVT prophylaxis was managed with Lovenox and Coumadin until she reached a therapeutic INR. By postoperative day 3, she was orthopedically and medically stable for discharge to [facility]. PHYSICAL EXAMINATION: General: Well appearing, in no acute distress. Alert and oriented. Vital Signs: Temperature 98.4, pulse rate 96, respiration rate 16, oxygen saturation 94, blood pressure 122/45. Examination of the left lower extremity demonstrates a surgical incision on the left hip, which is benign, without erythema, drainage or signs of infection . A sterile dressing was applied. She had active dorsiflexion and plantar flexion, with 2+ palpable dorsalis pedis and tibial pulses. Sensation is intact to light touch. LABORATORY DATA ON THE DATE OF DISCHARGE: H and H of 8.7 and 26, with an INR of 2.80. Postoperative x-rays of the hip showed an unremarkable immediate postoperative appearance of the left total hip replacement. DISCHARGE MEDICATIONS: 1. Colace 100 mg p.o. b.i.d. 2. Estradiol 1 mg p.o. q.a.m. 3. Hydrochlorothiazide 25 mg p.o. q.a.m., hold for systolic blood pressure less than 110 and diastolic less than 70. 4. Levothyroxine 100 mcg p.o. q.a.m. 5. Nortriptyline 100 mg p.o. q.h.s. 6. Omeprazole 40 mg p.o. b.i.d. 7. Percocet 5/325 mg p.o. q.4 to 6 hours, 1 to 2 tablets as needed for pain. 8. Antacid 500 mg 4 tablets p.o. p.r.n. 9. Vitamin D3 supplementation 5000 international units p.o. q.a.m. 10. Cholestyramine 4 g p.o. q.p.m. 11. Allergy-Time 25 mg p.o. b.i.d. 12. Coumadin 2 mg tablet, 1 to 3 tablets every day at 5 p.m., per physician's instruction. CONDITION ON DISCHARGE: Stable. DISCHARGE INSTRUCTIONS: Ms. Carrington is a very pleasant 47-year-old female, postoperative day 3, status post left total hip arthroplasty, which was uncomplicated. She is orthopedically and medically stable for discharge to go home with home services. Her labs and vital signs are stable. She will restart her home medications with hold parameters for her hydrochlorothiazide. She will hold her Coumadin dose on 12/10/17 and take 2 mg on 12/11/17 and , with an INR drawn on 12/13/17. She will have a CBC draw done as well on 02/25 to check her H and H. She will remain weightbearing as tolerated on the left lower extremity and have physical therapy at [facility]. She will take Percocet as needed for pain control and Colace up to 3 times a day for constipation. She will follow up with Dr. Hall in approximately 10 to 14 days for incision check and suture removal. She was instructed to go immediately to the ER should she develop chest pain or shortness of breath and should she develop fever, increasing pain or redness around the incision, she is to call the office immediately. LEXIS GRANT [id number]/[facility] #: [id number] [facility] MEDICAL CENTERFrancisco
[2017-12-10 12:11] VITALS: BP 97/45
--- NOTE | 2017-12-10 12:46 | PN ---
Progress Note - Progress Note Date of Service: 12/10/17 SOAP: Subjective: Patient is OOB in chair. She completed physical therapy this morning and was able to do stairs yesterday afternoon and today. States pain better controlled today. Denies CP, SOB, fever, chills, nausea or left leg numbness. Objective: Vital Signs Temp Pulse Resp BP Pulse Ox 98.9 F 81 16 97/45 96 12/10/17 11:32 12/10/17 11:32 12/10/17 11:32 12/10/17 11:32 12/10/17 11:32 Laboratory Results - last 24 hr 12/10/17 12/10/17 05:46 05:46 Hgb 8.7 L Hct 26 L Plt Count 230 MPV 8 INR (Anticoag Therapy) 2.80 H Vital Signs Temp 98.9 F 12/10/17 11:32 Pulse 81 12/10/17 11:32 Resp 16 12/10/17 11:32 BP 97/45 12/10/17 11:32 Pulse Ox 96 12/10/17 11:32 Intake & Output 12/09/17 12/10/17 12/10/17 18:59 06:59 18:59 Intake Total 1200 1420 Output Total 1950 450 500 Balance -750 970 -500 Intake: Oral 1200 1420 Output: Urine 1950 450 500 Other: # Bowel Movements 0 0 Estimated Stool Amount Small General: Sitting in chair. Well appearing, NAD. Sitting comfortably in chair. LLE: Left hip with incision CDI, no surrounding erythema. Thigh is soft and supple. DF/PF intact. 2+ DP pulse. Sensation intact distally. BL LE: Calves supple and nontender without erythema, edema or palpable cords. Assessment: POD 3 SP left total hip arthroplasty 12/07, Dr Hall Plan: 1. WBAT 2. PT/OT 3. Hold Coumadin today per supertherapeutic INR, restart on 2 mg, recheck INR Wednesday and . 4. Plan to DC to [facility] today 5. Dressing changed today
== END 2017-12-10 16:30 | DRG 301 ==
LOC: AA 09:51 → SSU 18:34
PROVIDERS: ADMIT Orthopaedic Surgery Adult Reconstructive Orthopaedic Surgery; ATTEND Orthopaedic Surgery Adult Reconstructive Orthopaedic Surgery
PROC: 0SRB04A Replacement of Left Hip Joint with Ceramic on Polyethylene Synthetic Substitute, Uncemented, Open Approach (ICD-10-PCS; principal; 2017-12-07 13:00)
DX: M16.12 Unilateral primary osteoarthritis, left hip (principal); E66.9 Obesity, unspecified; E03.9 Hypothyroidism, unspecified; K21.9 Gastro-esophageal reflux disease without esophagitis; F41.9 Anxiety disorder, unspecified; I10 Essential (primary) hypertension; R62.50 Unspecified lack of expected normal physiological development in childhood; M25.752 Osteophyte, left hip; R79.1 Abnormal coagulation profile; Z85.41 Personal history of malignant neoplasm of cervix uteri; Z90.49 Acquired absence of other specified parts of digestive tract; Z90.710 Acquired absence of both cervix and uterus; Z90.721 Acquired absence of ovaries, unilateral; Z80.1 Family history of malignant neoplasm of trachea, bronchus and lung; Z68.29 Body mass index [BMI] 29.0-29.9, adult; Z79.890 Hormone replacement therapy; Z79.01 Long term (current) use of anticoagulants; Z72.89 Other problems related to lifestyle
CPT/HCPCS: 36415; 72170; 80048; 85014; 85018; 85049; 85610; 88304; 88311; 94760; A9270-GY; C1776; J0690; J1200; J1240; J1650; J2250; J2405; J2704; J2765; J3010

== ENCOUNTER 2018-06-10 20:24 | Emergency (ER) | payer OTHER ==
--- OUTSIDE RECORDS SUMMARY | 2018-06-10 21:16 | XMS REPORT ---
:1970 External Reference #:[id number] Author Organization [facility] Address [address] [place] [address] Phone [phone] Care Team Providers Name Role Phone Baljeet Dean M.D. Primary Care Physician Unavailable Payers Type Date Identification Numbers Payment Provider Subscriber Commercial Effective: Policy Number: [id number] [facility] Eliot Whitley Zeb 2013 Medicaid PayID: [id number] [address] [place] [address] Health Maintenance Effective: Policy Number: Panchito Hardin Eliot Whitley [facility] (O) 05/11/2012 [id number] Option Zeb Expires: 10/10/2013 Group Name: ] [address] [address] PayID: [id number] [place] [address] Problems Date Description Provider Status Onset: 08/16/2013 Degenerative joint disease Marisol Crane M.D. Active involving multiple joints Onset: 08/16/2013 Low back pain Marisol Crane M.D. Active Onset: 08/16/2013 Gastroesophageal reflux disease Marisol Crane M.D. Active Onset: 08/16/2013 Arthralgia of the lower leg Marisol Crane M.D. Active Onset: 08/16/2013 Allergic rhinitis Marisol Crane M.D. Active Onset: 10/15/2015 Gastroesophageal reflux disease CASSANDRA Green Active Family History Date Family Member(s) Problem(s) Comments Father due to Cancer, Lung () Mother due to Unknown- the patient is not in () communication with her First Son Allergies First Daughter Asthma Social History Type Date Description Comments Lives With Alone Diet Healthy, Well Balanced avoids fast foods and fried foods, no white potatoes. She like broccoli, corn, carrots, brussle sprouts, cooked peppers. Occupation Disabled Work Status Not Currently Working Cigarette Use Former Cigarette Smoker Current second hand smoke exposure ETOH Use Occasionally consumes alcohol Recreational Drug Use Denies Drug Use Daily Caffeine Does Not Consume Caffeine Exercise Type/Frequency Exercises regularly Guns in Home No Allergies, Adverse Reactions, Alerts Date Description Reaction Status Severity Comments 02/02/2018 Nitrofurantoin, Monohydrate RASH active 05/12/2018 Cat Dander active 08/16/2013 NKDA inactive Medications Medication Date Status Form Strength Qnty SIG Indications Ordering Provider Magnesium 05/12 Active Tablets 250mg 90tab one by G47.62 Shawnti R. /2017 s mouth Storm, before METAL MOVER-C bed Diphenhydramine 05/09 Active 25mg 30uni Take 1 Shawnti R. 25MG Cap ts Capsule Storm, By Mouth METAL MOVER-C Every 6 Hours as Needed For Itching And Allergies Colace 01/10 Active Capsules 100mg 60cap 1 by Shawnti R. /2017 s mouth Storm, twice METAL MOVER-C daily if needed for stools Benadryl Dye-Free 12/03 Active Capsules 25mg 120ca Take 1 Shawnti R. Allergyliquid-Gel ps Capsule Storm, s By Mouth METAL MOVER-C Every 6 Hours as Needed For Itching And Allergies Nabumetone 11/04 Active Tablets 750mg 90tab take one M16.9 Shawnti R. /2017 s tab three Storm, times METAL MOVER-C daily if needed for pain...re places diclofena c Vitamin D3 11/04 Active Capsules 5000Unit 90cap take one E55.9 Shawnti R. /2017 s capsule Storm, by mouth METAL MOVER-C every day Nortriptyline HCL 11/04 Active Capsules 50mg 90cap take F43.0 Shawnti R. /2017 s three Storm, capsules METAL MOVER-C by mouth at bedtime for pain Estradiol 08/10 Active Tablets 1mg 30tab take 1 N95.1 Shawnti R. s tablet by Storm, mouth METAL MOVER-C once daily for hormone replaceme nt Omeprazole 05/[address] 40mg 60cap take one Shawnti R. s capsule Storm, by mouth METAL MOVER-C twice daily Hydrochlorothiazi 08/17 Active Tablets 25mg 90tab take one R60.9 Shawnti R. de s tablet by Storm, mouth METAL MOVER-C every day Levothyroxine 04/26 Active Tablets 100mcg 90tab take one E03.8 Shawnti R. Sodium s tablet by Storm, mouth METAL MOVER-C once daily Ciprofloxacin HCL 02/02 Hx Tablets 500mg 20tab 1 tab by N39.0 Allan s mouth [place], - twice a MD Nystatin 02/02 Hx Suspension [id number] 200ml 4 B37.0 Allan t/ML millilite [place], - rs by 10/13 mouth three times a day swish and swallow for 7 days Benadryl Allergy 02/02 Hx Tablets 25mg 60tab 1 tab by L50.0 Allan s mouth [place], - three MD 05/12 times a day as needed Oxycodone-Acetami 01/10 Hx Tablets 5-325mg 14tab 1 by Amira lang s mouth Storm, - four METAL MOVER-C 02/25 times day if needed severe pain Fluticasone 10/30 Hx Suspension 50mcg/Act 16uni instill 2 Shawnti R. Propionate ts sprays , - into each METAL MOVER-C 11/04 nostril every morning as needed Saline Mist [place] 10/29 Hx Solution 0.65% 45ml use in J06.9 Shawnti R. each nare , - as needed METAL MOVER-C 10/30 for irritatio n and dryness Cool Mist 10/29 Hx Misc 1Gallon 1unit use at J06.9 Shawnti R. Humidifier s night for Pradeep, Gallon - breathing METAL MOVER-C 11/04 Fluconazole 10/29 Hx Tablets 150mg 2tabs 1 by N76.0 Shawnti R. mouth Storm, - now, february METAL MOVER-C 02/12 repeat in 1 week if sx still present Nortriptyline HCL 05/22 Hx Capsules 75mg 30cap Take One F43.0 Shawnti R. s Capsule Storm, - By Mouth METAL MOVER-C 11/04 AT Bedtime For Sleep,Robert n,Stress Hydrocortisone 04/23 Hx Cream 2.5% 30gm apply to Shawnti R. itchy Storm, - area METAL MOVER-C 02/12 times a day as needed itch Nystatin 04/23 Hx Ointment [id number] 15gm apply a L71.0 Shawnti R. t/GM pea sized Storm, - amount to METAL MOVER-C 01/13 rash tid until resolved Diphenhydramine 04/07 Hx Capsules 25mg 120ca Take One wnti R. HCL ps Capsule Storm, - By Mouth METAL MOVER-C 12/03 Every Hours as Needed For Itching And Allergies Estrace 02/06 Hx Tablets 1mg 30tab 1 PO N95.1 Shawnti R. s Daily For Storm, - Hormone METAL MOVER-C 08/10 Replace nt Estrace Hx Tablets 0.5mg 30tab 1 po N95.1 Shawnti R. s daily for Storm, - HRT METAL MOVER-C 02/06 Nortriptyline HCL 11/08 Hx Capsules 50mg 90cap 1 by F43.0 Shawnti R. s mouth Storm, - every METAL MOVER-C 05/22 night at bedtime for pain Diclofenac Sodium 11/08 Hx Tablets ER 100mg 30tab Take One M16.9 Shawnti R. ER 24HR s Tablet By Storm, - Mouth METAL MOVER-C 11/04 Every Day For Arthritis (Replaces Naproxen) Benadryl Allergy 10/15 Hx Tablets 25mg 120ta 1 po Q6hr Shawnti R. bs prn Storm, - itching METAL MOVER-C 10/15 and allergies Hydrocortisone 10/15 Hx Cream 2.5% 30gm apply to Shawnti R. itchy Storm, - area METAL MOVER-C 10/15 times a day as needed itch Gold [place] Extra 10/15 Hx Powder 1unit apply to Shawnti R. Strength s affected Storm, - area bid METAL MOVER-C 11/08 Nortriptyline HCL 10/15 Hx Capsules 25mg 30cap 1 by N95.1 Shawnti R. s mouth Storm, - every METAL MOVER-C 11/08 night at bedtime for sleep and pain and hot flashes Sock Aid 07/30 [facility]x M[facility] Storm, - with METAL MOVER-C 11/04 putting on socks Vitamin D3 5,000 06/07 Hx 90uni Take One E55.9 Shawnti R. Unit Soft ts Capsule Storm, - By Mouth METAL MOVER-C 11/04 Every Magnesium 05/20 Hx Tablets 250[facility]tab [facility] mouth Storm, - every METAL MOVER-C 10/15 night at bedtime for leg cramps Nystatin 05/20 Hx Powder [id number] 30gm apply to 112.89 Shawnti R. t/GM vaginal Storm, - area METAL MOVER-C 10/15 times daily until rash has resolved Meloxicam 12/10 Hx Tablets 15mg 30tab 1 po qd 784.99 Shawnti R. /2014 s Storm, - METAL MOVER-C 05/20 Vitamin D3 06/15 Hx Tablets 5000Unit 90tab 1 by 268.9 Shawnti R. /2013 s mouth Storm, - every day METAL MOVER-C 06/07 Vitamin D-3 02/15 Hx Tablets 2000Unit 90tab 1 po qd 268.9 Marisol /2013 Rosangela Shi M.D. 06/15 Levothyroxine 02/15 Hx Tablets 75mcg 30tab 1 po qd 244.8 Marisol Sodium /2013 Rosangela ShiDAnahi 04/26 Ciprofloxacin HCL 02/15 Hx Tablets 500mg 20tab 1 po bid 599.0 Marisol /2013 justin Crane - M.D. 02/18 Nystatin/Triamcin 02/15 Hx Ointment [id number]. 80uni apply a 112.3 Marisol ol 1Unit/GM- ts thin Jon Crane, - % amount to M.D. 10/15 the skin bid Naproxen 02/15 Hx Tablets 500mg 180ta take one R06.89 wnti R. bs tablet by Pradeep, - mouth METAL MOVER-C 11/08 twice a /2015 day Levothyroxine 01/12 Hx Tablets 50mcg 30tab 1 po qd 244.8 Marisol Sodium /2013 s Jon Crane, - M.D. 02/15 Levothyroxine 12/14 Hx Tablets 25mcg 30tab 1 po qd 244.8 Marisol Sodium s Jon Crane, - M.DAnahi 01/12 Vitamin D-3 12/14 Hx Capsules 1000Unit 90cap 1 po qd 268.9 Marisol s Jon Crane, - M.D. 02/15 Cholestyramine 12/07 Hx Packet 4gm 60uni Use as wnti R. ts Directed Pradeep, - 1-2 Times METAL MOVER-C 02/25 Daily To Control Bowels Welchol 09/21 Hx Tablets 625mg 60tab take 2 Marisol s every day Jon Crane, - M.D. 12/07 Culturelle 09/15 Hx Capsules 90cap Take one 784.99 Marisol Digestive s capsule Jon Crane, - three M.D. 10/15 daily with meals Meloxicam 09/15 Hx Tablets 15mg 30tab 1 po qd 784.99 Coretta /2012 s Shaq, - METAL MOVER-C 02/15 Bentyl 09/15 Hx Tablets 20mg 30tab take one 564.1 Marisol /2012 s every 6 Jon Crane, - hours as M.D. 09/21 neeed abdominal cramping Tizanidine HCL 08/16 Hx Tablets 4mg 40tab take one 724.2 Marisol /2012 s po every Jon Crane, - 6 hours M.D. 09/15 as needed for pain Welchol 08/15 Hx Tablets 625mg 60tab take 2 Marisol s every day Jon Crane - M.DAnahi 09/15 Omeprazole 08/[address] 20mg 180ca take one Shawnti R. ps capsule Storm, - by mouth METAL MOVER-C 05/20 twice day Oxycodone-Acetami Hx Tablets 5-325mg Unknown nophen /0000 - 01/10 Cephalexin Hx Capsules 500mg 1 tab by Unknown /0000 mouth - three 02/25 times day x 7 days Immunizations CPT Code Status Date Vaccine Lot # [id number] Given 11/04/2017 Influenza Virus Vaccine, Quadrivalent, 3 Yr > [id number] Quad, Preserv Free 71503 Given 10/29/2016 Influenza Virus Vaccine, Quadrivalent, 3 Yr > [id number] Quad, Preserv Free 29111 Given 07/26/2015 Influenza Virus Vaccine, Quadrivalent, 3 Yr > [id number] Quad, Preserv Free 50127 Given 08/17/2014 Influenza Virus Vaccine, Quadrivalent, 3 Yr > [id number] Quad, Preserv Free 28494 Given 12/14/2013 Tdap (Adacel) [id number] Vital Signs Date Vital Result Comment 05/12/2018 Weight 190.00 lb Weight in kg's 86.184 BP Systolic 100 mmHg BP Diastolic 60 mmHg Heart Rate 82 /min Body Temperature 97.0 F Respiratory Rate 16 /min Height 66.5 inches 5'6.50" BMI (Body Mass Index) 30.2 kg/m2 02/25/2018 Weight 190.00 lb Weight in kg's 86.184 BP Systolic 118 mmHg BP Diastolic 70 mmHg Heart Rate 84 /min Body Temperature 97.3 F Respiratory Rate 16 /min O2 % BldC Oximetry 100 % 02/10/2018 Weight 192.00 lb Weight in kg's 87.091 BP Systolic 110 mmHg BP Diastolic 64 mmHg Heart Rate 84 /min Body Temperature 97.9 F Respiratory Rate 16 /min 02/02/2018 Weight 197.00 lb Weight in kg's 89.359 BP Systolic 118 mmHg BP Diastolic 58 mmHg Heart Rate 92 /min Body Temperature 100.0 F Respiratory Rate 16 /min O2 % BldC Oximetry 96 % 01/10/2018 Weight 194.00 lb Weight in kg's 87.998 BP Systolic 112 mmHg BP Diastolic 76 mmHg Heart Rate 84 /min Body Temperature 96.7 F Respiratory Rate 17 /min O2 % BldC Oximetry 97 % 11/18/2017 Weight 187.00 lb Weight in kg's 84.823 BP Systolic 110 mmHg BP Diastolic 68 mmHg Heart Rate 80 /min Body Temperature 96.6 F Respiratory Rate 18 /min Height 66.5 inches 5'6.50" BMI (Body Mass Index) 29.7 kg/m2 O2 % BldC Oximetry 99 % 11/04/2017 Weight 186.00 lb Weight in kg's 84.370 BP Systolic 102 mmHg BP Diastolic 68 mmHg Heart Rate 80 /min Body Temperature 96.9 F Respiratory Rate 16 /min O2 % BldC Oximetry 98 % 03/15/2017 Weight 180.00 lb Weight in kg's 81.648 BP Systolic 98 mmHg BP Diastolic 62 mmHg Heart Rate 80 /min Body Temperature 98.0 F Respiratory Rate 16 /min 10/29/2016 Weight 180.00 lb Weight in kg's 81.648 BP Systolic 100 mmHg BP Diastolic 60 mmHg Heart Rate 68 /min Body Temperature 97.6 F Respiratory Rate 12 /min 05/22/2016 Weight 199.00 lb Weight in kg's 90.266 BP Systolic 110 mmHg BP Diastolic 60 mmHg Heart Rate 72 /min Height 66 inches 5'6" BMI (Body Mass Index) 32.1 kg/m2 04/23/2016 Weight 204.00 lb Weight in kg's 92.534 BP Systolic 90 mmHg BP Diastolic 60 mmHg Heart Rate 89 /min 02/07/2016 Weight 208.00 lb Weight in kg's 94.349 BP Systolic 118 mmHg BP Diastolic 64 mmHg Heart Rate 80 /min 12/09/2015 Weight 213.00 lb Weight in kg's 96.617 BP Systolic 110 mmHg BP Diastolic 70 mmHg Heart Rate 84 /min 11/08/2015 Weight 208.00 lb Weight in kg's 94.349 BP Systolic 110 mmHg BP Diastolic 64 mmHg Heart Rate 70 /min 10/15/2015 Weight 208.00 lb Weight in kg's 94.349 BP Systolic 110 mmHg BP Diastolic 60 mmHg Heart Rate 60 /min 05/20/2015 Weight 206.00 lb Weight in kg's 93.442 BP Systolic 110 mmHg BP Diastolic 64 mmHg Heart Rate 60 /min Height 67 inches 5'7" BMI (Body Mass Index) 32.3 kg/m2 Last Menstrual Period [id number] 11/23/2014 Weight 213.00 lb Weight in kg's 96.617 BP Systolic 104 mmHg BP Diastolic 60 mmHg Heart Rate 68 /min 08/17/2014 Weight 214.00 lb Weight in kg's 97.070 BP Systolic 124 mmHg BP Diastolic 86 mmHg Heart Rate 56 /min 06/15/2014 Weight 207.00 lb Weight in kg's 93.895 BP Systolic 120 mmHg BP Diastolic 55 mmHg Heart Rate 57 /min 02/15/2014 Weight 206.00 lb Weight in kg's 93.442 BP Systolic 130 mmHg BP Diastolic 62 mmHg Heart Rate 60 /min 12/14/2013 Weight 204.00 lb Weight in kg's 92.534 BP Systolic 110 mmHg BP Diastolic 60 mmHg Heart Rate 64 /min 09/15/2013 Weight 203.00 lb Weight in kg's 92.081 BP Systolic 126 mmHg BP Diastolic 70 mmHg Heart Rate 76 /min 08/16/2013 Weight 203.00 lb Weight in kg's 92.081 BP Systolic 116 mmHg BP Diastolic 70 mmHg Heart Rate 72 /min Height 66 inches 5'6" BMI (Body Mass Index) 32.8 kg/m2 Results Test Date Test Result H/L Range Note Urine DIP 02/25/2018 Leukocytes ++ Neg Urine Nitrites NEG Neg Urobilinogen NORM Norm Total Protein, Urine TRACE Neg Urine pH 5 5-6 Urine Blood 250 High Neg Specific [place] 1.020 1.01-1.02 Urine Ketones NEG Neg Urine Bilirubin ++ Neg Urine Glucose NORM Norm Urine DIP 02/10/2018 Leukocytes + Neg Urine Nitrites neg Neg Urobilinogen norm Norm Total Protein, Urine + Neg Urine pH 5.0 5-6 Urine Blood 250 High Neg Specific [place] 1.020 1.01-1.02 Urine Ketones neg Neg Urine Bilirubin neg Neg Urine Glucose norm Norm Urine Culture And Sensitivities 02/02/2018 Urine Culture SEE RESULT BELOW 1, 2 Urine DIP 02/02/2018 Leukocytes ++ Neg Urine Nitrites neg Neg Urobilinogen norm Norm Total Protein, Urine + Neg Urine pH 5 5-6 Urine Blood about 250 Neg Specific [place] 1.015 1.01-1.02 Urine Ketones neg Neg Urine Bilirubin neg Neg Urine Glucose norm Norm Comp Metabolic Panel 11/04/2017 Sodium 138 mmol/L 133-145 Potassium 3.4 mmol/L Low 3.5-5.0 Chloride 100 mmol/L Low 101-111 Co2 Carbon Dioxide 31 mmol/L 22-32 Anion Gap 7 mmol/L 2-11 Glucose 102 mg/dL High 70-100 Blood Urea Nitrogen 26 mg/dL High 6-24 Creatinine 0.96 mg/dL High 0.51-0.95 BUN/Creatinine Ratio 27.1 High 8-20 Calcium 8.7 mg/dL 8.6-10.3 Total Protein 6.6 g/dL 6.4-8.9 Albumin 3.6 g/dL 3.2-5.2 Globulin 3.0 g/dL 2-4 Albumin/Globulin Ratio 1.2 1-3 Total Bilirubin 0.40 mg/dL 0.2-1.0 Alkaline Phosphatase 92 U/L 34-104 Alt 20 U/L 7-52 Ast 17 U/L 13-39 Egfr Non- 62.3 >60 Egfr 80.1 >60 3 CBC Auto Diff 11/04/2017 White Blood Count 10.2 10^3/uL 3.5-10.8 Red Blood Count 4.19 10^6/uL 4.0-5.4 Hemoglobin 12.0 g/dL 12.0-16.0 Hematocrit 36 % 35-47 Mean Corpuscular Volume 85 fL 80-97 Mean Corpuscular Hemoglobin 29 pg 27-31 Mean Corpuscular HGB Conc 34 g/dL 31-36 Red Cell Distribution Width 13 % 10.5-15 Platelet Count 338 10^3/uL 150-450 Mean Platelet Volume 8 um3 7.4-10.4 Abs Neutrophils 7.3 10^3/uL 1.5-7.7 Abs Lymphocytes 1.8 10^3/uL 1.0-4.8 Abs Monocytes 0.6 10^3/uL 0-0.8 Abs Eosinophils 0.4 10^3/uL 0-0.6 Abs Basophils 0.1 10^3/uL 0-0.2 Abs Nucleated RBC 0 10^3/uL Granulocyte % 71.6 % 38-83 Lymphocyte % 18.2 % Low 25-47 Monocyte % 5.9 % 1-9 Eosinophil % 3.6 % 0-6 Basophil % 0.7 % 0-2 Nucleated Red Blood Cells % 0.1 Lipid Profile (Trig/Chol/HDL) 11/04/2017 Triglycerides 195 mg/dL 4 Cholesterol 189 mg/dL 5 HDL Cholesterol 76.2 mg/dL 6 LDL Cholesterol 74 mg/dL 7 Laboratory test finding 11/04/2017 TSH (Thyroid Stim Horm) 1.73 mcIU/mL 0.34-5.60 8 Hemoglobin A1c (Glyco HGB) 5.4 % 4.0-5.6 9 Laboratory test finding 06/01/2017 Lactic Acid 1.7 mmol/L 0.5-2.0 10 Urinalysis Profile 06/01/2017 Urine Color Yellow Urine Appearance Cloudy Urine Specific [place] 1.006 Low 1.010-1.030 Urine pH 5.0 5-9 Urine Urobilinogen Negative Negative Urine Ketones Negative Negative Urine Protein 1+(30 mg/dL) Negative Urine Leukocytes 3+ Negative Urine Blood 2+ Negative Urine Nitrite Positive Negative Urine Bilirubin Negative Negative Urine Glucose Negative Negative Urine White Blood Cell 3+(>20/hpf) Absent Urine Red Blood Cell Absent Absent Urine Bacteria 3+ Absent Urine Squamous Epithelial Cell Present Absent Urine Amorphous Crystals Present Absent CBC Auto Diff 06/01/2017 White Blood Count 11.1 10^3/uL High 3.5-10.8 Red Blood Count 4.13 10^6/uL 4.0-5.4 Hemoglobin 11.8 g/dL Low 12.0-16.0 Hematocrit 35 % 35-47 Mean Corpuscular Volume 85 fL 80-97 Mean Corpuscular Hemoglobin 29 pg 27-31 Mean Corpuscular HGB Conc 33 g/dL 31-36 Red Cell Distribution Width 14 % 10.5-15 Platelet Count 377 10^3/uL 150-450 Mean Platelet Volume 8 um3 7.4-10.4 Abs Neutrophils 7.9 10^3/uL High 1.5-7.7 Abs Lymphocytes 2.2 10^3/uL 1.0-4.8 Abs Monocytes 0.7 10^3/uL 0-0.8 Abs Eosinophils 0.2 10^3/uL 0-0.6 Abs Basophils 0.1 10^3/uL 0-0.2 Abs Nucleated RBC 0.01 10^3/uL Granulocyte % 71.0 % 38-83 Lymphocyte % 20.1 % Low 25-47 Monocyte % 6.6 % 1-9 Eosinophil % 1.8 % 0-6 Basophil % 0.5 % 0-2 Nucleated Red Blood Cells % 0.1 Comp Metabolic Panel 06/01/2017 Sodium 138 mmol/L 133-145 Potassium 2.9 mmol/L Low 3.5-5.0 Chloride 101 mmol/L 101-111 Co2 Carbon Dioxide 28 mmol/L 22-32 Anion Gap 9 mmol/L 2-11 Glucose 122 mg/dL High 70-100 Blood Urea Nitrogen 18 mg/dL 6-24 Creatinine 0.82 mg/dL 0.51-0.95 BUN/Creatinine Ratio 22.0 High 8-20 Calcium 9.2 mg/dL 8.6-10.3 Total Protein 7.2 g/dL 6.4-8.9 Albumin 3.9 g/dL 3.2-5.2 Globulin 3.3 g/dL 2-4 Albumin/Globulin Ratio 1.2 1-3 Total Bilirubin 0.40 mg/dL 0.2-1.0 Alkaline Phosphatase 90 U/L 34-104 Alt 22 U/L 7-52 Ast 19 U/L 13-39 Egfr Non- 75.1 >60 Egfr 96.5 >60 11 Laboratory test finding 06/01/2017 Magnesium 2.0 mg/dL 1.9-2.7 Troponin-I (TnI) 0.00 ng/mL <0.04 TSH (Thyroid Stimulating Horm) 0.86 mcIU/mL 0.34-5.60 Urine Culture SEE RESULT BELOW 12 Urinalysis Profile 04/23/2017 Urine Color [place] Urine Appearance Cloudy Urine Specific [place] 1.019 1.010-1.030 Urine pH 5.0 5-9 Urine Urobilinogen Negative Negative Urine Ketones Negative Negative Urine Protein 2+(100 mg/dL) Negative Urine Leukocytes 3+ Negative Urine Blood 2+ Negative Urine Nitrite Positive Negative Urine Bilirubin Negative Negative Urine Glucose Negative Negative Urine White Blood Cell 3+(>20/hpf) Absent Urine Red Blood Cell 3+(>10/hpf) Absent Urine Bacteria 1+ Absent Urine Squamous Epithelial Cell Present Absent Inr/Protime 04/23/2017 Inr 0.91 0.89-1.11 Laboratory test finding 04/23/2017 Partial Thrombo Time 28.1 seconds 26.0 -36.3 PTT Type & Screen 04/23/2017 Patient Blood Type A Positive Antibody Screen NEGATIVE Laboratory test 04/23/2017 Urine Culture And SEE RESULT BELOW 13 finding Sensitivities Comp Metabolic Panel 03/15/2017 Sodium 139 mmol/L 133-145 Potassium 4.2 mmol/L 3.5-5.0 Chloride 102 mmol/L 101-111 Co2 Carbon Dioxide 30 mmol/L 22-32 Anion Gap 7 mmol/L 2-11 Glucose 87 mg/dL 70-100 Blood Urea Nitrogen 19 mg/dL 6-24 Creatinine 0.74 mg/dL 0.51-0.95 BUN/Creatinine Ratio 25.7 High 8-20 Calcium 9.4 mg/dL 8.6-10.3 Total Protein 6.7 g/dL 6.4-8.9 Albumin 3.9 g/dL 3.2-5.2 Globulin 2.8 g/dL 2-4 Albumin/Globulin Ratio 1.4 1-3 Total Bilirubin 0.70 mg/dL 0.2-1.0 Alkaline Phosphatase 69 U/L 34-104 Alt 19 U/L 7-52 Ast 16 U/L 13-39 Egfr Non- 84.5 >60 Egfr 108.7 >60 14 CBC Auto Diff 03/15/2017 White Blood Count 10.6 10^3/uL 3.5-10.8 Red Blood Count 4.53 10^6/uL 4.0-5.4 Hemoglobin 12.9 g/dL 12.0-16.0 Hematocrit 40 % 35-47 Mean Corpuscular Volume 88 fL 80-97 Mean Corpuscular Hemoglobin 28 pg 27-31 Mean Corpuscular HGB Conc 32 g/dL 31-36 Red Cell Distribution Width 14 % 10.5-15 Platelet Count 341 10^3/uL 150-450 Mean Platelet Volume 9 um3 7.4-10.4 Abs Neutrophils 7.7 10^3/uL 1.5-7.7 Abs Lymphocytes 2.0 10^3/uL 1.0-4.8 Abs Monocytes 0.6 10^3/uL 0-0.8 Abs Eosinophils 0.2 10^3/uL 0-0.6 Abs Basophils 0.1 10^3/uL 0-0.2 Abs Nucleated RBC 0 10^3/uL Granulocyte % 72.5 % 38-83 Lymphocyte % 18.6 % Low 25-47 Monocyte % 6.1 % 1-9 Eosinophil % 2.0 % 0-6 Basophil % 0.8 % 0-2 Nucleated Red Blood Cells % 0 Iron & Iron Binding Capacity 03/15/2017 Iron 111 g/dL 50-212 Unsaturated Iron Binding 313 g/dL Total Iron Binding Capacity 424 g/dL 250-450 % Iron Saturation 26 % 15-55 Laboratory test finding 03/15/2017 Magnesium 1.9 mg/dL 1.9-2.7 15 Ferritin 59.5 ng/mL 11-307 16 Laboratory test 10/29/2016 Gardnerella/Yeast: Vaginal SEE RESULT BELOW 17 finding Dna GC/Chlamydia 10/29/2016 Chlamydia trachomatis Rna Negative Negative Amplified Rna Neisseria gonorrhoeae (GC) Rna Negative Negative Laboratory test finding 10/29/2016 Trichomonas Vaginalis Negative Negative 18 Rna CBC Auto Diff 10/29/2016 White Blood Count 10.5 10^3/uL 3.5-10.8 19 Red Blood Count 4.59 10^6/uL 4.0-5.4 19 Hemoglobin 13.3 g/dL 12.0-16.0 19 Hematocrit 40 % 35-47 19 Mean Corpuscular Volume 88 fL 80-97 19 Mean Corpuscular Hemoglobin 29 pg 27-31 19 Mean Corpuscular HGB Conc 33 g/dL 31-36 19 Red Cell Distribution Width 13 % 10.5-15 19 Platelet Count 334 10^3/uL 150-450 19 Mean Platelet Volume 9 um3 7.4-10.4 19 Abs Neutrophils 6.7 10^3/uL 1.5-7.7 19 Abs Lymphocytes 2.7 10^3/uL 1.0-4.8 19 Abs Monocytes 0.7 10^3/uL 0-0.8 19 Abs Eosinophils 0.3 10^3/uL 0-0.6 19 Abs Basophils 0.1 10^3/uL 0-0.2 19 Abs Nucleated RBC 0.01 10^3/uL 19 Granulocyte % 64.1 % 38-83 19 Lymphocyte % 25.8 % 25-47 19 Monocyte % 6.5 % 1-9 19 Eosinophil % 2.8 % 0-6 19 Basophil % 0.8 % 0-2 19 Nucleated Red Blood Cells % 0.1 19 Comp Metabolic Panel 10/29/2016 Sodium 138 mmol/L 133-145 19 Potassium 3.6 mmol/L 3.5-5.0 19 Chloride 100 mmol/L Low 101-111 19 Co2 Carbon Dioxide 30 mmol/L 22-32 19 Anion Gap 8 mmol/L 2-11 19 Glucose 79 mg/dL 70-100 19 Blood Urea Nitrogen 23 mg/dL 6-24 19 Creatinine 0.86 mg/dL 0.51-0.95 19 BUN/Creatinine Ratio 26.7 High 8-20 19 Calcium 9.9 mg/dL 8.6-10.3 19 Total Protein 7.3 g/dL 6.4-8.9 19 Albumin 4.2 g/dL 3.2-5.2 19 Globulin 3.1 g/dL 2-4 19 Albumin/Globulin Ratio 1.4 1-3 19 Total Bilirubin 0.40 mg/dL 0.2-1.0 19 Alkaline Phosphatase 82 U/L 34-104 19 Alt 25 U/L 7-52 19 Ast 16 U/L 13-39 19 Egfr Non- 71.0 >60 19 Egfr 91.4 >60 19, 20 Lipid Profile (Trig/Chol/HDL) 10/29/2016 Triglycerides 174 mg/dL 19, 21 Cholesterol 208 mg/dL 19, 22 HDL Cholesterol 82.7 mg/dL 19, 23 LDL Cholesterol 91 mg/dL 19, 24 Laboratory test finding 10/29/2016 Vitamin D Total 25(Oh) 47.9 ng/mL 30- 50 19, 25 TSH (Thyroid Stimulating Horm) 2.86 mcIU/mL 0.34-5.60 19, 26 CBC Auto Diff 05/22/2016 White Blood Count 8.7 10^3/uL 3.5-10.8 Red Blood Count 4.44 10^6/uL 4.0-5.4 Hemoglobin 12.7 g/dL 12.0-16.0 Hematocrit 39 % 35-47 Mean Corpuscular Volume 87 fL 80-97 Mean Corpuscular Hemoglobin 29 pg 27-31 Mean Corpuscular HGB Conc 33 g/dL 31-36 Red Cell Distribution Width 13 % 10.5-15 Platelet Count 274 10^3/uL 150-450 Mean Platelet Volume 9 um3 7.4-10.4 Abs Neutrophils 5.8 10^3/uL 1.5-7.7 Abs Lymphocytes 2.0 10^3/uL 1.0-4.8 Abs Monocytes 0.5 10^3/uL 0-0.8 Abs Eosinophils 0.3 10^3/uL 0-0.6 Abs Basophils 0 10^3/uL 0-0.2 Abs Nucleated RBC 0 10^3/uL Granulocyte % 67.4 % 38-83 Lymphocyte % 22.7 % Low 25-47 Monocyte % 6.3 % 1-9 Eosinophil % 3.1 % 0-6 Basophil % 0.5 % 0-2 Nucleated Red Blood Cells % 0 Comp Metabolic Panel 05/22/2016 Sodium 139 mmol/L 133-145 Potassium 3.4 mmol/L Low 3.5-5.0 Chloride 103 mmol/L 101-111 Co2 Carbon Dioxide 29 mmol/L 22-32 Anion Gap 7 mmol/L 2-11 Glucose 102 mg/dL High 70-100 Blood Urea Nitrogen 22 mg/dL 6-24 Creatinine 0.93 mg/dL 0.51-0.95 BUN/Creatinine Ratio 23.7 High 8-20 Calcium 9.3 mg/dL 8.6-10.3 Total Protein 7.1 g/dL 6.4-8.9 Albumin 4.0 g/dL 3.2-5.2 Globulin 3.1 g/dL 2-4 Albumin/Globulin Ratio 1.3 1-3 Total Bilirubin 0.60 mg/dL 0.2-1.0 Alkaline Phosphatase 74 U/L 34-104 Alt 28 U/L 7-52 Ast 21 U/L 13-39 Egfr Non- 65.2 >60 Egfr 83.8 >60 27 Lipid Profile (Trig/Chol/HDL) 05/22/2016 Triglycerides 223 mg/dL 28 Cholesterol 187 mg/dL 29 HDL Cholesterol 62.7 mg/dL 30 LDL Cholesterol 80 mg/dL 31 Laboratory test finding 05/22/2016 TSH (Thyroid Stim 4.34 mcIU/mL 0.34- 5.60 32 Horm) Comp Metabolic Panel 11/08/2015 Sodium 138 mmol/L 133-145 Potassium 3.4 mmol/L Low 3.5-5.0 Chloride 101 mmol/L 101-111 Co2 Carbon Dioxide 30 mmol/L 22-32 Anion Gap 7 mmol/L 2-11 Glucose 88 mg/dL 70-100 Blood Urea Nitrogen 14 mg/dL 6-24 Creatinine 0.64 mg/dL 0.51-0.95 BUN/Creatinine Ratio 21.9 High 8-20 Calcium 9.1 mg/dL 8.6-10.3 Total Protein 6.6 g/dL 6.4-8.9 Albumin 4.0 g/dL 3.2-5.2 Globulin 2.6 g/dL 2-4 Albumin/Globulin Ratio 1.5 1-3 Total Bilirubin 0.40 mg/dL 0.2-1.0 Alkaline Phosphatase 81 U/L 34-104 Alt 22 U/L 7-52 Ast 19 U/L 13-39 Egfr Non- 100.3 >60 Egfr 129.1 >60 33 CBC No Diff 11/08/2015 White Blood Count 9.9 10^3/uL 3.5-10.8 Red Blood Count 4.65 10^6/uL 4.0-5.4 Hemoglobin 13.3 g/dL 12.0-16.0 Hematocrit 41 % 35-47 Mean Corpuscular Volume 89 fL 80-97 Mean Corpuscular Hemoglobin 29 pg 27-31 Mean Corpuscular HGB Conc 32 g/dL 31-36 Red Cell Distribution Width 14 % 10.5-15 Platelet Count 309 10^3/uL 150-450 Mean Platelet Volume 9 um3 7.4-10.4 Lipid Profile (Trig/Chol/HDL) 11/08/2015 Triglycerides 165 mg/dL 34 Cholesterol 186 mg/dL 35 HDL Cholesterol 54.2 mg/dL 36 LDL Cholesterol 99 mg/dL 37 Laboratory test finding 11/08/2015 TSH (Thyroid Stim Horm) 1.10 ?IU/mL 0.34-5.60 CBC Auto Diff 07/19/2015 White Blood Count 9.3 10^3/uL 4.8-10.8 Red Blood Count 4.63 10^6/uL 4.0-5.4 Hemoglobin 13.6 g/dL 12.0-16.0 Hematocrit 41 % 35-47 Mean Corpuscular Volume 88 fL 80-97 Mean Corpuscular Hemoglobin 29 pg 27-31 Mean Corpuscular HGB Conc 33 g/dL 31-36 Red Cell Distribution Width 13 % 10.5-15 Platelet Count 284 10^3/uL 150-450 Mean Platelet Volume 9 um3 7.4-10.4 Abs Neutrophils 6.2 10^3/uL 1.5-7.7 Abs Lymphocytes 2.2 10^3/uL 1.0-4.8 Abs Monocytes 0.6 10^3/uL 0-0.8 Abs Eosinophils 0.3 10^3/uL 0-0.6 Abs Basophils 0.1 10^3/uL 0-0.2 Abs Nucleated RBC 0 10^3/uL Granulocyte % 66.4 % 38-83 Lymphocyte % 23.5 % Low 25-47 Monocyte % 5.9 % 1-9 Eosinophil % 3.0 % 0-6 Basophil % 1.2 % 0-2 Nucleated Red Blood Cells % 0 Comp Metabolic Panel 07/19/2015 Sodium 135 mmol/L 133-145 Potassium 3.4 mmol/L Low 3.5-5.0 Chloride 101 mmol/L 101-111 Co2 Carbon Dioxide 29 mmol/L 22-32 Anion Gap 5 mmol/L 2-11 Glucose 113 mg/dL High 70-100 Blood Urea Nitrogen 16 mg/dL 6-24 Creatinine 0.59 mg/dL 0.51-0.95 BUN/Creatinine Ratio 27.1 High 8-20 Calcium 9.2 mg/dL 8.6-10.3 Total Protein 6.5 g/dL 6.4-8.9 Albumin 4.0 g/dL 3.2-5.2 Globulin 2.5 g/dL 2-4 Albumin/Globulin Ratio 1.6 1-3 Total Bilirubin 0.50 mg/dL 0.2-1.0 Alkaline Phosphatase 65 U/L 34-104 Alt 22 U/L 7-52 Ast 18 U/L 13-39 Egfr Non- 110.7 >60 Egfr 142.4 >60 38 Laboratory test 07/19/2015 TSH (Thyroid 0.21 ?IU/mL Low 0.34-5.60 finding Stimulating Horm) Laboratory test 05/20/2015 Cytology SEE RESULT BELOW 39 finding HPV Rna Ww/Reflex Genotype Negative Negative 40 CBC No Diff 11/23/2014 White Blood Count 9.4 10^3/uL 4.8-10.8 Red Blood Count 4.37 10^6/uL 4.0-5.4 Hemoglobin 13.2 g/dL 12.0-16.0 Hematocrit 39 % 35-47 Mean Corpuscular Volume 90 fL 80-97 Mean Corpuscular Hemoglobin 30 pg 27-31 Mean Corpuscular HGB Conc 34 g/dL 31-36 Red Cell Distribution Width 14 % 10.5-15 Platelet Count 245 10^3/uL 150-450 Mean Platelet Volume 10 um3 7.4-10.4 Laboratory test finding 11/23/2014 TSH (Thyroid Stimulating 2.79 IU/mL 0.34-5.60 Horm) Vitamin D, 25 Hydroxy 11/23/2014 25-Hydroxy Vitamin D2 <4.0 ng/mL 25-Hydroxy Vitamin D3 31 ng/mL 25-Hydroxy Vitamin D Total 31 ng/mL 41 Laboratory test finding 06/08/2014 TSH (Thyroid Stimulating 2.21 IU/mL 0.34-5.60 Horm) Vitamin D, 25 Hydroxy 06/08/2014 25-Hydroxy Vitamin D2 <4.0 ng/mL 25-Hydroxy Vitamin D3 27 ng/mL 25-Hydroxy Vitamin D Total 27 ng/mL 42 Laboratory test finding 04/16/2014 TSH (Thyroid 4.80 IU/mL 0.34-5.60 Stimulating Horm) Laboratory test finding 02/15/2014 Affirm Vaginal Dna (SEE NOTE) 43 Probe Urine Culture And 02/15/2014 Urine Culture (SEE NOTE) 44 Sensitivities Urine DIP 02/15/2014 Specific [place] 1.025 High 1.01-1.02 Urine pH 5 5-6 Leukocytes ++ Neg Urine Nitrites pos Neg Total Protein, Urine ++ Neg Urine Glucose norm Norm Urine Ketones neg Neg Urobilinogen norm Norm Urine Bilirubin neg Neg Urine Blood 250 High Neg Vitamin D, 25 Hydroxy 02/08/2014 25-Hydroxy Vitamin D2 <4.0 ng/mL 25-Hydroxy Vitamin D3 21 ng/mL 25-Hydroxy Vitamin D Total 21 ng/mL 45 Laboratory test 02/08/2014 TSH (Thyroid 6.10 IU/mL High 0.34-5.60 finding Stimulating Horm) HIV 1/2 AB 01/11/2014 HIV 1 2 Antibody Nonreactive Nonreactive 46 Evaluation Laboratory test 01/11/2014 TSH (Thyroid 6.50 IU/mL High 0.34-5.60 finding Stimulating Horm) Free T4 0.69 ng/mL 0.61-1.12 Total T3 0.74 ng/mL Low 0.87-1.78 Thyroid Peroxidase Antibodies 1.89 IU/mL <9 Hepatitis C Antibody Nonreactive Nonreactive Laboratory test finding 12/14/2013 Cytology RUN DATE: 12/15/ <SEE NOTE> 47 Basic Metabolic Panel 12/07/2013 Sodium 140 mmol/L 133-145 Potassium 4.0 mmol/L 3.7-5.6 Chloride 103 mmol/L 101-111 Co2 Carbon Dioxide 31 mmol/L 22-32 Anion Gap 6 mmol/L 2-11 Glucose 82 mg/dL 70-100 Blood Urea Nitrogen 17 mg/dL 6-24 Creatinine 0.60 mg/dL 0.51-0.95 BUN/Creatinine Ratio 28.3 High 8-20 Calcium 9.5 mg/dL 8.6-10.3 Egfr Non- 109.1 >60 Egfr 140.3 >60 48 CBC No Diff 12/07/2013 White Blood Count 10.0 10^3/uL 4.8-10.8 Red Blood Count 4.49 10^6/uL 4.0-5.4 Hemoglobin 13.5 g/dL 12.0-16.0 Hematocrit 40 % 35-47 Mean Corpuscular Volume 88 fL 80-97 Mean Corpuscular Hemoglobin 30 pg 27-31 Mean Corpuscular HGB Conc 34 g/dL 31-36 Red Cell Distribution Width 14 % 10.5-15 Platelet Count 357 10^3/uL 150-450 Mean Platelet Volume 9 um3 7.4-10.4 Lipid Profile (Trig/Chol/HDL) 12/07/2013 Triglycerides 126 mg/dL 49 Cholesterol 204 mg/dL 50 HDL Cholesterol 74.7 mg/dL 51 LDL Cholesterol 104 mg/dL 52 Liver Function Panel 12/07/2013 Total Protein 7.2 g/dL 6.4-8.9 Albumin 4.3 g/dL 3.2-5.2 Globulin 2.9 g/dL 2-4 Albumin/Globulin Ratio 1.5 1-3 Total Bilirubin 0.60 mg/dL 0.2-1.0 Direct Bilirubin 0.10 mg/dL 0.03-0.18 Indirect Bilirubin 0.5 mg/dL 0.3-1.0 Alkaline Phosphatase 77 U/L 34-104 Alt 22 U/L 7-52 Ast 20 U/L 13-39 Laboratory test 12/07/2013 TSH (Thyroid 9.97 IU/mL High 0.34-5.60 53 finding Stimulating Horm) Vitamin D 1,25-Dihydroxy 27 pg/mL 18-78 54 Vitamin B12 680 pg/mL 180-914 55 1 Negative culture, of limited utility since she is on abx 2 SEE RESULT BELOW Name: ELIOT OCHOA : [address]: Allan Rose MD Acct: [id number] Unit: [id number] AGE: 47 Location: [facility] Re02/02/18 SEX: F Status: REG REF SPEC: [id number] LISANDRO: 02/02/18-[address] [facility] DR: Allan Rose MD REQ: [id number] RECD: 02/02/18 STATUS: COMP _ SOURCE: URINE SPDESC: ORDERED: Urine Culture COMMENTS: [id number] Urine Source: Random Procedure Result Reported Site Urine Culture Final 02/04/18- 0910 ML No Growth (<1,000 CFU/mL) * ML - Main Lab . END OF REPORT DEPARTMENT OF PATHOLOGY, [address] [place] [address] Augustine Stacy M.D. Director [facility] # [id number] 3 Because ethnic data is not always readily available, this report includes an eGFR for both -Americans and non- Americans. The National Kidney Disease Education Program (NKDEP) does not endorse the use of the MDRD equation for patients that are not between the ages of 18 and 70, are , have extremes of body size, muscle mass, or nutritional status, or are non- or non-. According to the National Kidney Foundation, irrespective of diagnosis, the stage of the disease is based on the level of kidney function: Stage Description GFR(mL/min/1.73 m(2)) 1 Kidney damage with normal or decreased GFR 90 2 Kidney damage with mild decrease in GFR 60-89 3 Moderate decrease in GFR 30-59 4 Severe decrease in GFR 15-29 5 Kidney failure <15 (or dialysis) 4 Desirable: <150 Borderline High: 150-199 High: 200-499 Very High: >500 5 Desirable: <200 Borderline High: 200-239 High: >239 6 Low: <40 Desirable: 40-60 High: >60 7 Desirable: <100 Near Optimal: 100-129 Borderline High: 130-159 High: 160-189 Very High: >189 8 [id number] 9 Therapeutic target for the treatment of diabetes mellitus patients is <7% HBA1C, and in selective patients <6.0%. Please refer to [place] [employer] diabetic care guidelines for further information. 10 [facility] Severe Sepsis and Septic Shock Management Bundle Measure requires all lactic acids initially measuring >2.0 mmol/L be repeated. 11 Because ethnic data is not always readily available, this report includes an eGFR for both -Americans and non- Americans. The National Kidney Disease Education Program (NKDEP) does not endorse the use of the MDRD equation for patients that are not between the ages of 18 and 70, are , have extremes of body size, muscle mass, or nutritional status, or are non- or non-. According to the National Kidney Foundation, irrespective of diagnosis, the stage of the disease is based on the level of kidney function: Stage Description GFR(mL/min/1.73 m(2)) 1 Kidney damage with normal or decreased GFR 90 2 Kidney damage with mild decrease in GFR 60-89 3 Moderate decrease in GFR 30-59 4 Severe decrease in GFR 15-29 5 Kidney failure <15 (or dialysis) 12 SEE RESULT BELOW Name: ELIOT OCHOA : [address]: Fernando Givens MD Acct: [id number] Unit: [id number] AGE: 46 Location: ED Re06/01/17 SEX: F Status: DEP ER SPEC: [id number] LISANDRO: 06/01/17 [facility] DR: Fernando Givens MD REQ: [id number] RECD: 06/01/17 STATUS: SALLY ELLER DR: Amira Fernández [employer] TECHNICIAN _ SOURCE: URINE SPDESC: ORDERED: Urine Culture Procedure Result Reported Site Urine Culture Final 06/04/17- 08 ML Organism 1 ESCHERICHIA COLI [place] Count >100,000 (Many) CFU/ML Organism 2 NORMAL HARDEEP [place] Count 10-25,000 (Moderate) CFU/ML 1. ESCHERICHIA COLI M.I.C. RX --------- ------ Ampicillin 4 S Cefazolin <=4 S Cefepime <=1 S Ceftriaxone <=1 S Ciprofloxacin <=0.25 S Gentamicin <=1 S Levofloxacin <=0.12 S Meropenem <=0.25 S Nitrofurantoin <=16 S Tetracycline <=1 S Pipercillin/Tazobactam <=4 S Trimethoprim/Sulfamethoxazole <=20 S Amoxicillin/Clavulanic Acid <=2 S Aztreonam <=1 S Contact the Microbiology Department for any additional antibiotic reporting. * ML - MAIN LAB ([facility]) . END OF REPORT * ML=Testing performed at Main Lab DEPARTMENT OF PATHOLOGY, [address] [place] [address] Augustine Stacy M.D. Director [facility] # [id number] 13 SEE RESULT BELOW Name: ELIOT OCHOA : [address]: Katie Hall MD Acct: [id number] Unit: [id number] AGE: 46 Location: [facility] Re04/23/17 SEX: F Status: REG REF SPEC: [id number] LISANDRO: 04/23/[address]: Katie Hall MD REQ: [id number] RECD: 04/23/17 STATUS: SALLY ELLER DR: Amira Fernández [employer] FIELD TECHNICIAN _ SOURCE: URINE SPDESC: ORDERED: Urine Culture QUERIES: Urine Source: Clean Catch Procedure Result Reported Site Urine Culture Final 04/25/17- 08 ML Organism 1 ESCHERICHIA COLI [place] Count >100,000 (Many) CFU/ML Organism 2 NORMAL HARDEEP [place] Count 1-10,000 (Few) CFU/ML 1. ESCHERICHIA COLI M.I.C. RX --------- ------ Ampicillin 4 S Cefazolin <=4 S Cefepime <=1 S Ceftriaxone <=1 S Ciprofloxacin <=0.25 S Gentamicin <=1 S Levofloxacin <=0.12 S Meropenem <=0.25 S Nitrofurantoin <=16 S Tetracycline <=1 S Pipercillin/Tazobactam <=4 S Trimethoprim/Sulfamethoxazole <=20 S Amoxicillin/Clavulanic Acid <=2 S Aztreonam <=1 S Contact the Microbiology Department for any additional antibiotic reporting. * ML - MAIN LAB ([facility]) . END OF REPORT * ML=Testing performed at Main Lab DEPARTMENT OF PATHOLOGY, [address] [place] [address] Augustine Stacy M.D. Director [facility] # [id number] 14 Because ethnic data is not always readily available, this report includes an eGFR for both -Americans and non- Americans. The National Kidney Disease Education Program (NKDEP) does not endorse the use of the MDRD equation for patients that are not between the ages of 18 and 70, are , have extremes of body size, muscle mass, or nutritional status, or are non- or non-. According to the National Kidney Foundation, irrespective of diagnosis, the stage of the disease is based on the level of kidney function: Stage Description GFR(mL/min/1.73 m(2)) 1 Kidney damage with normal or decreased GFR 90 2 Kidney damage with mild decrease in GFR 60-89 3 Moderate decrease in GFR 30-59 4 Severe decrease in GFR 15-29 5 Kidney failure <15 (or dialysis) 15 [id number] 17 SEE RESULT BELOW Name: ELIOT OCHOA : [address]: Amira Fernández NP Acct: [id number] Unit: [id number] AGE: 46 Location: [facility] Re10/29/16 SEX: F Status: REG REF SPEC: [id number] LISANDRO: 10/29/[address] [facility] [address]: Amira Fernández NP REQ: [id number] RECD: 10/29/16 STATUS: COMP _ SOURCE: CHUYITA SEPULVEDAESC: ORDERED: Saul Xiao DNA COMMENTS: [id number] Procedure Result Reported Site Gardnerella/Yeast: Vaginal DNA Final 10/30/16- 1238 ML Organism 1 Negative Gardnerella Organism 2 Negative Lynne The presence of G. vaginalis, although suggestive, is not diagnostic for bacterial vaginosis. Results should be interpreted in conjuction with other clinical and laboratory data available. Women with vaginal discharge should be evaluated for risk factors of cervicitis and pelvic inflammatory disease, toxic shock syndrome (S.aureus), and if present, evaluated for organisms not included in this assay such as N. gonorrhoeae, C. trachomatis, Mobiluncus, Mycoplasma and/or Prevotella. Mixed infections may occur. The performance of this test on patient specimens collected during or immediately after antimicrobial therapy is unknown. The presence or absence of Lynne species, or G. vaginalis cannot be used as a test for therapeutic success or failure. * ML - [facility] ([facility]) . END OF REPORT * ML=Testing performed at Main Lab DEPARTMENT OF PATHOLOGY, [address] [place] [address] Augustine Stacy M.D. Director [facility] # [id number] 18 [id number] GC/Chlamydia Source?: Endocervical Trichomonas Source: Endocervical 19 [id number] 20 Because ethnic data is not always readily available, this report includes an eGFR for both -Americans and non- Americans. The National Kidney Disease Education Program (NKDEP) does not endorse the use of the MDRD equation for patients that are not between the ages of 18 and 70, are , have extremes of body size, muscle mass, or nutritional status, or are non- or non-. According to the National Kidney Foundation, irrespective of diagnosis, the stage of the disease is based on the level of kidney function: Stage Description GFR(mL/min/1.73 m(2)) 1 Kidney damage with normal or decreased GFR 90 2 Kidney damage with mild decrease in GFR 60-89 3 Moderate decrease in GFR 30-59 4 Severe decrease in GFR 15-29 5 Kidney failure <15 (or dialysis) 21 Desirable <150 Borderline high 150-199 High 200-499 Very High >500 22 Desirable <200 Borderline high 200-239 High >239 23 Low <40 Desirable: 40-60 High: >60 24 Desirable: <100 mg/dL Near Optimal: 100-129 mg/dL Borderline High: 130-159 mg/dL High: 160-189 mg/dL Very High: >189 mg/dL 25 [id number] 26 [id number] 27 Because ethnic data is not always readily available, this report includes an eGFR for both -Americans and non- Americans. The National Kidney Disease Education Program (NKDEP) does not endorse the use of the MDRD equation for patients that are not between the ages of 18 and 70, are , have extremes of body size, muscle mass, or nutritional status, or are non- or non-. According to the National Kidney Foundation, irrespective of diagnosis, the stage of the disease is based on the level of kidney function: Stage Description GFR(mL/min/1.73 m(2)) 1 Kidney damage with normal or decreased GFR 90 2 Kidney damage with mild decrease in GFR 60-89 3 Moderate decrease in GFR 30-59 4 Severe decrease in GFR 15-29 5 Kidney failure <15 (or dialysis) 28 Desirable <150 Borderline high 150-199 High 200-499 Very High >500 29 Desirable <200 Borderline high 200-239 High >239 30 Low <40 Desirable: 40-60 High: >60 31 Desirable: <100 mg/dL Near Optimal: 100-129 mg/dL Borderline High: 130-159 mg/dL High: 160-189 mg/dL Very High: >189 mg/dL 32 [id number] 33 Because ethnic data is not always readily available, this report includes an eGFR for both -Americans and non- Americans. The National Kidney Disease Education Program (NKDEP) does not endorse the use of the MDRD equation for patients that are not between the ages of 18 and 70, are , have extremes of body size, muscle mass, or nutritional status, or are non- or non-. According to the National Kidney Foundation, irrespective of diagnosis, the stage of the disease is based on the level of kidney function: Stage Description GFR(mL/min/1.73 m(2)) 1 Kidney damage with normal or decreased GFR 90 2 Kidney damage with mild decrease in GFR 60-89 3 Moderate decrease in GFR 30-59 4 Severe decrease in GFR 15-29 5 Kidney failure <15 (or dialysis) 34 Desirable <150 Borderline high 150-199 High 200-499 Very High >500 35 Desirable <200 Borderline high 200-239 High >239 36 Low <40 Desirable: 40-60 High: >60 37 Desirable: <100 mg/dL Near Optimal: 100-129 mg/dL Borderline High: 130-159 mg/dL High: 160-189 mg/dL Very High: >189 mg/dL 38 Because ethnic data is not always readily available, this report includes an eGFR for both -Americans and non- Americans. The National Kidney Disease Education Program (NKDEP) does not endorse the use of the MDRD equation for patients that are not between the ages of 18 and 70, are , have extremes of body size, muscle mass, or nutritional status, or are non- or non-. According to the National Kidney Foundation, irrespective of diagnosis, the stage of the disease is based on the level of kidney function: Stage Description GFR(mL/min/1.73 m(2)) 1 Kidney damage with normal or decreased GFR 90 2 Kidney damage with mild decrease in GFR 60-89 3 Moderate decrease in GFR 30-59 4 Severe decrease in GFR 15-29 5 Kidney failure <15 (or dialysis) 39 SEE RESULT BELOW Name: ELIOT OCHOA : [address]: Amira Fernández NP Acct: [id number] Unit: [id number] AGE: 44 Location: [facility] Re05/20/15 SEX: F Status: REG REF SPEC: [id number] LISANDRO: 05/20/15-[address]: Amira Fernández NP REQ: [id number] RECD: 05/20/15 STATUS: SOUT _ ORDERED: IMAGE ANALYSIS, HPV/Thin Prep, HPV 16/18 GENE FINAL DIAGNOSIS Negative for Intraepithelial lesion or Malignancy A. Vaginal Specimen Adequacy: Satisfactory of evaluation Patient Information: HPV: High risk HPV RNA testing regardless of pap results. HPV 16/18 Genotype for HPV pos Actual Specimen Date: 05/20/15 Date of Last Specimen: 12/14/13 ?: N Hysterectomy?: Y Other Pertinent History: total hystectomy Date Time Test Result Flag (u) Normal Range 05/20/15 1524 HPV RNA RFLX GE Negative Negative The high-risk HPV types detected by the assay include: 16, 18, 31, 33, 35, 39, 45, 51, 52, 56, 58, 59, 66, and 68. Signed (signature on file) Naomi Lg 05/22/15 1321 This Pap test was evaluated with the assistance of the CulturalitePrep Test Imaging System. Due to cytologic findings at the fudger microscope, comprehensive manual rescreening by a Parking Lot Spotter may be required. The Pap Smear is a screening test designed to aid in the detection of premalignant and malignant conditions of the uterine cervix. It is not a diagnostic procedure and should not be used as the sole means of detecting cervical cancer. Both false- positive and false- negative reports do occur. Depending on your risk status, a Pap smear should be obtained and evaluated every 1-3 years. END OF REPORT * ML=Testing performed at Main Lab DEPARTMENT OF PATHOLOGY, [address] [place] [address] Augustine Stacy M.D. Director [facility] # [id number] 40 The high-risk HPV types detected by the assay include: 16, 18, 31, 33, 35, 39, 45, 51, 52, 56, 58, 59, 66, and 68. 41 REFERENCE VALUE 25-HYDROXY D TOTAL (D2+D3) Optimum levels in the healthy population are 20-50, patients with bone disease may benefit from higher levels within this range. Test Performed by: [facility] - [address] [address] Denture Waxer: Scott Panda II, M.D., Ph.D. 42 -- REFERENCE VALUE -- 25-HYDROXY D TOTAL (D2+D3) Optimum levels in the healthy population are 20-50, patients with bone disease may benefit from higher levels within this range. Test Performed by: [facility] - [address] [address] Denture Waxer: Luther Looney III, M.D. 43 RUN DATE: 02/15/14 [facility] LAB LIVE PAGE 1 RUN TIME: [address] [place] [address] Specimen Inquiry Name: ELIOT OCHOA : [address]: Marisol Crane MD Acct: [id number] Unit: [id number] AGE: 43 Location: [facility] Re02/15/14 SEX: F Status: REG REF SPEC: [id number] LISANDRO: 02/15/14-[address]: Marisol Crane MD REQ: [id number] RECD: 02/15/14 STATUS: COMP _ SOURCE: VAGINAL [facility]: ORDERED: Affirm QUERIES: Medent Number [id number] Procedure Result Verified Site Affirm Vaginal DNA Probe Final 02/15/14- 1417 ML Organism 1 Negative Trichomonas Organism 2 Negative Gardnerella Organism 3 Negative Lynne The presence of G. vaginalis, although suggestive, is not diagnostic for bacterial vaginosis. Results should be interpreted in conjunction with other clinical and laboratory data available. Women with vaginal discharge should be evaluated for risk factors of cervicitis and pelvic inflammatory disease, toxic shock syndrome (S.aureus), and if present, evaluated for organisms not included in this assay such as N. gonorrhoeae, C. trachomatis, Mobiluncus, Mycoplasma and/or Prevotella. Mixed infections may occur. The performance of this test on patient specimens collected during or immediately after antimicrobial therapy is unknown. The presence or absence of Lynne species, G. vaginalis or T. vaginalis cannot be used as a test for therapeutic success or failure. END OF REPORT * ML=Testing performed at Main Lab DEPARTMENT OF PATHOLOGY, [address] [place] [address] Augustine Stacy M.D. Director [facility] # [id number] 44 RUN DATE: 02/17/14 [facility] LAB LIVE PAGE 1 RUN TIME: [address] [place] [address] Specimen Inquiry Name: ELIOT OCHOA : [address]: Marisol Crane MD Acct: [id number] Unit: [id number] AGE: 43 Location: [facility] Re02/15/14 SEX: F Status: REG REF SPEC: [id number] LISANDRO: 02/15/14-[address] [facility] [address]: Marisol Crane MD REQ: [id number] RECD: 02/15/14-1233 STATUS: COMP _ SOURCE: URINE SPDESC: ORDERED: Urine Culture QUERIES: Medent Number [id number] Procedure Result Verified Site Urine Culture Final 02/17/14- 0958 ML Organism 1 ESCHERICHIA COLI [place] Count >100,000 (Many) CFU/ML 1. ESCHERICHIA COLI M.I.C. RX --------- ------ Ampicillin 4 S Cefazolin <=4 S Cefepime <=1 S Ceftriaxone <=1 S Ciprofloxacin <=0.25 S Gentamicin <=1 S Levofloxacin <=0.12 S Meropenem <=0.25 S Nitrofurantoin 32 S Tetracycline <=1 S Pipercillin/Tazobactam <=4 S Trimethoprim/Sulfamethoxazole <=20 S Amoxicillin/Clavulanic Acid 4 S Aztreonam <=1 S Contact the Microbiology Department for any additional antibiotic reporting. END OF REPORT * ML=Testing performed at Main Lab DEPARTMENT OF PATHOLOGY, [address] [place] [address] Augustine Stacy M.D. Director [facility] # [id number] -- REFERENCE VALUE -- 25-HYDROXY D TOTAL (D2+D3) Optimum levels in the healthy population are 20-50, patients with bone disease may benefit from higher levels within this range. Test Performed by: [place] [address] Denture Waxer: Luther R. Cockerill, III, M.D. 46 It is recognized that currently available assays for the detection of antibodies to HIV-1 and/or HIV-2 may not detect all infected individuals. HIV antibodies may be undetectable in some stages of the infection and in some clinical conditions. The performance of this assay has not been established for populations of infants or children. Assayed by Chemiluminescence Microparticle Immunoassay on the Siemens Advia Centaur CP. Values obtained with different methods or kits cannot be used interchangeably.The diagnostic specificity of the ADVIA Centaur 1/O/2 Enhanced assay in the low risk population was 99.90% (6052/6058) with a 95% confidence interval of 99.78 to 99.96%. 47 RUN DATE: 12/15/13 [facility] LAB LIVE PAGE 1 RUN TIME: [address] [place], [place] [address] Specimen Inquiry Name: ELIOT OCHOA : [address]: Marisol Crane MD Acct: [id number] Unit: [id number] AGE: 43 Location: [facility] Re12/14/13 SEX: F Status: REG REF SPEC: [id number] LISANDRO: 12/14/1333 [facility] DR: Marisol Crane MD REQ: [id number] RECD: 12/14/139760 STATUS: SOUT _ ORDERED: IMAGE ANALYSIS FINAL DIAGNOSIS Negative for Intraepithelial lesion or Malignancy A. Vaginal Specimen Adequacy: Satisfactory of evaluation Patient Information: HPV: Thin Layer Pap Test only (NO HPV TESTING) Actual Specimen Date: 12/14/13 Hysterectomy?: Y Signed (signature on file) Landon MarcelinoHEATHER brock (ASCP) 12/15 1033 This Pap test was evaluated with the assistance of the ThinPrep Test Imaging System. Due to cytologic findings at the fudger microscope, comprehensive manual rescreening by a Parking Lot Spotter may be required. The Pap Smear is a screening test designed to aid in the detection of premalignant and malignant conditions of the uterine cervix. It is not a diagnostic procedure and should not be used as the sole means of detecting cervical cancer. Both false- positive and false- negative reports do occur. Depending on your risk status, a Pap smear shoudl be obtained and evaluated every 1-3 years. END OF REPORT * ML=Testing performed at Main Lab DEPARTMENT OF PATHOLOGY, [address] [place] [address] Augustine Stacy M.D. Director [facility] Permit #[id number] 48 Because ethnic data is not always readily available, this report includes an eGFR for both -Americans and non- Americans. The National Kidney Disease Education Program (NKDEP) does not endorse the use of the MDRD equation for patients that are not between the ages of 18 and 70, are , have extremes of body size, muscle mass, or nutritional status, or are non- or non-. According to the National Kidney Foundation, irrespective of diagnosis, the stage of the disease is based on the level of kidney function: Stage Description GFR(mL/min/1.73 m(2)) 1 Kidney damage with normal or decreased GFR 90 2 Kidney damage with mild decrease in GFR 60-89 3 Moderate decrease in GFR 30-59 4 Severe decrease in GFR 15-29 5 Kidney failure <15 (or dialysis) 49 Desirable <150 Borderline high 150-199 High 200-499 Very High >500 50 Desirable <200 Borderline high 200-239 High >239 51 Low <40 Desirable: 40-60 High: >60 52 Desirable <100 Near Optimal 100-129 Borderline high 130-159 High 160-189 Very High >189 53 FASTING 8 HOUR 54 Test Performed by: [address] [address] Denture Waxer: Luther Looney III, M.D. 55 Normal Range 180 to 914 Indeterminate Range 145 to 180 Deficient Range <145 Procedures Date CPT Code Description Status Comment 11/18/2017 82042 EKG, at Least 12 Leads Completed w/Interpretation and Report 11/24/2013 Mammogram Completed Normal screening examination. Encounters Type Date Location Provider CPT E/M Dx Office Visit 02/25/2018 2:00p Main Office LAURA Green-C 88075 N39.0 M25.561 M25.562 Office Visit 02/10/2018 2:30p [place] [address] N39.0 B37.0 L50.0 Office Visit 02/02/2018 4:15p [place] [address] N39.0 B37.0 L50.0 Office Visit 01/10/2018 2:15p Main Office Amira Fernández METAL MOVER-C 81922 M16.9 K59.00 Office Visit 11/18/2017 3:00p Main Office Amira Fernández [facility] [facility] 62847 Z01.818 M16.9 R07.89 Office Visit 11/04/2017 2:15p Main Office Amira Fernández [facility] [facility]C 44798 M16.9 G47.00 I10 Z12.31 E03.9 Z23 Office Visit 03/15/2017 11:15a Main Office Amira Fernández [facility] [facility]C 24307 Z01.818 G47.62 Office Visit 10/29/2016 2:15p Main Office Amira Fernández, [facility] [facility]-C 22707 N76.0 J06.9 I10 E55.9 E03.8 Z23 Office Visit 05/22/2016 1:30p Main Office Amira Fernández, [facility] [facility]-C 35518 Z00.00 M17.9 M16.9 F43.0 Office Visit 04/23/2016 2:45p Main Office Amira Fernández, [facility] [facility]-C 12236 F80.89 L71.0 Office Visit 02/07/2016 3:00p Main Office Amira Fernández, [facility] [facility]-C 08559 N95.1 Office Visit 12/09/2015 3:00p Main Office Amira Fernández, [facility] [facility]C 50401 N95.1 M25.569 Office Visit 11/08/2015 2:30p Main Office Amira Fernández, [facility] [facility]C 51326 N95.1 M15.0 I10 E03.8 Office Visit 10/15/2015 11:15a Main Office Amira Fernández, [facility] [facility]C 28353 K21.9 N95.1 Z63.0 Office Visit 05/20/2015 2:15p Main Office Amira Fernández, [facility] 77130 V70.0 112.89 327.52 Office Visit 11/23/2014 2:15p Main Office Amira Fernández, [facility] 77143 719.44 268.9 244.8 782.3 Office Visit 08/17/2014 4:15p Main Office Marisol Crane M.D. 00017 782.3 244.8 268.9 V04.81 Office Visit 06/15/2014 11:30a Main Office Marisol Crane M.D. 27176 244.8 268.9 278.00 Office Visit 02/15/2014 9:45a Main Office Marisol Crane M.D. 24283 244.8 268.9 616.10 599.0 715.09 112.3 Office Visit 12/14/2013 8:30a Main Office Marisol Crane M.D. 61383 V70.0 715.09 530.81 244.8 268.9 278.00 V06.1 Office Visit 09/15/2013 10:15a Main Office Marisol Crane M.D. 12311 715.09 530.81 784.99 564.1 Office Visit 08/16/2013 9:30a Main Office Marisol Crane M.D. 85195 715.09 724.2 530.81 719.46 Plan of Care 05/12/2018 - Amira Fernández, [facility]-CZ00.00 Encntr for general adult medical exam w/o abnormal findingsComments:The patient presents to the office for her annual wellness visit. Health screening exams:Mammogram:due in FebDEXA scanColonoscopyPAP: UTDImmunizations: UTDLab test: UTDHealthy diet and increased physical activity was discussed with the patient. She will follow up again in one years time or sooner if needed.Follow up:pathology reports from Hysterectomy in [place] in 2000Recommendations:proper diet and exercise are very important for overall health. You should eat at least 5 servings of fruits and vegetables every day, this can be fresh or frozen. You should try to get at least 24 grams of fiber in your diet each day, this can be found in whole grains like wheat, brown rice, oats, Quinoa and fruits and vegetables. You should choose lean proteins such as fish, poultry, beans and legumes. You also need at least 4 servings of calcium rich foods daily, this can be in a supplement, dairy or broccoli. You should get at least 30 minutes of exercise on a daily basis, choose activities that make you feel winded but still able to talk, you should sweat and your heart rate should go up. If you have chest pain you should stop. If you can not do thirty minutes of exercise then do what you can and work towards this goal.G47.62 Sleep related leg crampsNew Medication: Magnesium 250 mgFollow up:increase nortriptyline to 3 pills before bedI83.813 Varicose veins of bilateral lower extremities with painComments:painful varicosities, will refer to vein and laser centerFollow up:referral to vein and laser center
--- NOTE | 2018-06-10 22:00 | ED ---
Lower Extremity - HPI Summary HPI Summary: 47-year-old female presents with bilateral knee pain. States she's left knee gave out when she fell onto her right knee. Her right knee was underneath her. She states she fell on the stairs. She denies any head injury. No other injury. No loss conscious. No nausea no vomiting. States pain is worse when she places weight on the area. No numbness or tingling. Has history of left knee giving out. States she's had hip surgery and had knee injection a couple months ago. - History of Current Complaint Chief Complaint: EDTraumaMultiple Stated Complaint: FALL Time Seen by Provider: 06/10/18 20:27 Pain Intensity: 7 - Allergies/Home Medications Allergies/Adverse Reactions: Allergies Allergy/AdvReac Type Severity Reaction Status Date / Time Adhesive Tape Allergy Severe rash, itchy Verified 06/10/18 20:33 nitrofurantoin Allergy Rash Verified 06/10/18 20:33 control Allergy Severe nauseated Uncoded 06/10/18 20:33 PMH/Surg Hx/FS Hx/Imm Hx Endocrine/Hematology History: Reports: Hx Thyroid Disease, Hx Anemia - hx of blood transfusion Denies: Hx Diabetes Cardiovascular History: Reports: Hx Valvular Heart Disease - Nonrheumatic tricuspid (valve) insufficiency Denies: Hx Hypertension, Hx Pacemaker/ICD, Other Cardiovascular Problems/ Disorders Respiratory History: Denies: Other Respiratory Problems/Disorders GI History: Reports: Hx Gastroesophageal Reflux Disease, Other GI Disorders - Colecystectomy. Can be constipated or have diarrhea. Denies: Hx Crohn's Disease History: Reports: Hx Kidney Stones - in past , none recent, Other Problems /Disorders - states she has bleeding from her crotch area when she walks too much Denies: Hx Dialysis, Hx Renal Disease Musculoskeletal History: Reports: Hx Arthritis - OSTEOARTHRITIS, Hx Osteoporosis , Other Musculoskeletal History - Scoliosis, Degenerative Joint Disease Sensory History: Reports: Hx Contacts or Glasses Denies: Hx Hearing Aid Opthamlomology History: Reports: Hx Contacts or Glasses Neurological History: Reports: Hx CVA, Other Neuro Impairments/Disorders - DEVELOPMENTAL DELAY Psychiatric History: Reports: Hx Anxiety - as a teenager, Hx Depression - as a teenager Denies: Hx Panic Disorder, Other Psychiatric Issues/Disorders - Cancer History Cancer Type, Location and Year: OVARIAN CARCINOMA. CERVICAL CARCINOMA Hx Chemotherapy: No - Surgical History Surgery Procedure, Year, and Place: OVARY REMOVED AGE 15 FOR CYST. TOTAL HYSTERECTOMY DUE TO CERVICAL CA 2000. EXPLORATORY SURGERY 2003. GALLBLADDER 2012. LEFT HIP REPLACEMENT 11/2017 Hx Anesthesia Reactions: No Infectious Disease History: No Infectious Disease History: Denies: History Other Infectious Disease, Traveled Outside the [place] in Last 30 Days - Family History Known Family History: Positive: Cardiac Disease - Social History Alcohol Use: None Substance Use Type: Reports: None Smoking Status (MU): Former Smoker Amount Used/How Often: smoked for 4 years 3-4 cig a day Review of Systems Negative: Fever Negative: Chest Pain Negative: Shortness Of Breath Positive: Myalgia - bilateral knee pain All Other Systems Reviewed And Are Negative: Yes Physical Exam Triage Information Reviewed: Yes Vital Signs On Initial Exam: Initial Vitals Temp Pulse Resp BP Pulse Ox 98.6 F 74 17 126/64 97 06/10/18 20:26 06/10/18 20:26 06/10/18 20:26 06/10/18 20:26 06/10/18 20:26 Vital Signs Reviewed: Yes Appearance: Positive: Well-Appearing Skin: Positive: Warm, Dry Head/Face: Positive: Normal Head/Face Inspection Eyes: Positive: Normal, Conjunctiva Clear ENT: Positive: Pharynx normal Respiratory/Lung Sounds: Positive: Clear to Auscultation, Breath Sounds Present Cardiovascular: Positive: Normal, RRR Musculoskeletal: Positive: Strength/ROM Intact - bilateral, Other - abrasions to bilteral knees, neg ballotment, neg varus and valgus stress, neg anterior drawer. Negative: Edema Left, Edema Right Neurological: Positive: Normal Psychiatric: Positive: Normal Diagnostics - Vital Signs Vital Signs Temp Pulse Resp BP Pulse Ox 06/10/18 20:26 98.6 F 74 17 126/64 97 - Laboratory Lab Statement: Any lab studies that have been ordered have been reviewed, and results considered in the medical decision making process. - Radiology knee Xray Interpretation: No Acute Changes Radiology Interpretation Completed By: ED Physician Lower Extremity Course/Dx - Course Course Of Treatment: 47-year-old female presents with bilateral knee pain. States she's left knee gave out when she fell onto her right knee. Her right knee was underneath her. She states she fell on the stairs. She denies any head injury. No other injury. No loss conscious. No nausea no vomiting. States pain is worse when she places weight on the area. No numbness or tingling. Has history of left knee giving out. States she's had hip surgery and had knee injection a couple months ago. She states this happened in October too. On exam has abrasions to bilateral knees. Negative ballottement. Full range of motion of the knee with pain. Neurovascular intact. X-rays read by me as normal. Told she may be shoulder get a brace for knee. Patient will follow-up with ortho. Patient understands and agrees with plan. - Diagnoses Differential Diagnosis/HQI/PQRI: Positive: Fracture (Closed), Sprain, Strain Provider Diagnoses: Bilateral knee pain Discharge - Sign-Out/Discharge Documenting (check all that apply): Patient Departure - Discharge Plan Condition: Good Disposition: HOME Patient Education Materials: Knee Pain (ED) Referrals: Amira Fernández NP [Primary Care Provider] - Katie Hall MD [Medical Doctor] - Additional Instructions: Ice, elevate, Ibuprofen or Tylenol every 6 hours for pain Follow up with ortho if no improvement Return to ED if develop or any new or worsening symptoms - Billing Disposition and Condition Condition: GOOD Disposition: Home
[2018-06-10 22:32] VITALS: BP 137/69
--- NOTE | 2018-06-11 09:42 | RAD ---
Indication: Bilateral knee pain post fall. Comparison: March 11, 2018 Technique: Bilateral knees. AP, tunnel, lateral, sunrise views obtained. Report: Both knees demonstrate normal articular alignment and absence of joint effusion or fracture. Both knees demonstrate mild osteophytosis and suggestion of early partial flattening of the medial femoral tibial articular surfaces. Unremarkable soft tissue contours. IMPRESSION: #. No radiographic evidence for RIGHT or LEFT knee joint effusion or fracture. #. Mild osteoarthritis. R0
== END 2018-06-10 22:10 | disposition home or self-care (01) ==
LOC: ED 20:24
DX: M25.562 Pain in left knee (principal); M25.561 Pain in right knee; Z87.891 Personal history of nicotine dependence
CPT/HCPCS: 99281

== ENCOUNTER → 2019-02-18 17:57 | Emergency (ER) | payer OTHER ==
[~2019-02-18 17:57] MED LIST changes: -Buffered Lidocaine 0.9% SYRIN* 5 ML/SYR SYRINGE INTRADERM ONE; +Clindamycin 600 MG IVPREMIX(* 600 MG/50 ML SDV IV ONE; +Clindamycin 600 MG/D5W BAG(*) 600 MG/50 ML BAG IV ONE; +NS 0.9% 1000 ML** 1,000 ML IV ONE
--- OUTSIDE RECORDS SUMMARY | 2019-02-18 18:10 | XMS REPORT | Continuity of Care Document ---
:1970 External Reference #:[id number] Author Name Damir Monica Care Team Providers Name Role Phone Amira Fernández NP Primary Care Physician Unavailable Payers Date Identification Numbers Payment Provider Subscriber Policy Number: [id number] Colton Carrington Group Number: [id number] [address] PayID: [id number] [place] [address] Expires: 2014 Policy Number: [id number] Maria Del Rosario Carrington Group Name: [id number] [address] [address] PayID: [id number] [place] [address] Advance Directives Description No Information Available Problems Active Problems Provider Date Gastroesophageal reflux disease Anyi Brunson NP Onset: 08/15/2018 Localized, primary osteoarthritis of the pelvic Katie Hall M.D. Onset: 02/2016 region and thigh Prosthetic arthroplasty of the hip Katie Hall M.D. Onset: 01/17/2018 Localized, primary osteoarthritis Katie Hall M.D. Onset: 03/11/2018 Family History Date Family Member(s) Observation Comments General Diabetes General Hypertension General Cancer General Rheumatoid Arthritis Father due to Lung Cancer () - at age 75 Mother no known cardiac issues, still living Mother Hypothyroidism Mother Rheumatoid Arthritis Siblings 3 Siblings no known cardiac issues Brother martina: arthritis and scoliosis Brother Mike: unaware of medical history Sister Doris: Unaware of medical history Social History Type Date Description Comments Sex Unknown Marital Status Lives With Alone Occupation Disabled ETOH Use Occasionally consumes alcohol Recreational Drug Use Denies Drug Use Tobacco Use Start: Unknown End: Patient is a former smoker Unknown Smoking Status Reviewed: 02/17/19 Patient is a former smoker Exercise Type/Frequency Does not exercise Allergies, Adverse Reactions, Alerts Active Allergies Reaction Severity Comments Date Nitrofurantoin 02/07/2018 Inactive Allergies NKDA 08/08/2015 Medications Active Medications SIG Qnty Indications Ordering Date Provider Raised Toilet Seat Raised toilet seat 1units Katie Hall, 12/15/2017 M.D. Misc Colace 1 tab by mouth 2-3 90caps Katie Hall, 12/03/2017 100mg Capsules times a day as M.D. needed Estradiol 1 by mouth twice Unknown 02/01/2017 1mg Tablets daily Ammonium Lactate use twice a daily Unknown 12% to feet and legs Cream Miralax take 2 packet daily Unknown [id number] Packet as needed for constipation Tessalon Perles one - two capsules Unknown 100mg three times a day Capsules as needed for cough Fexofenadine HCL 1 by mouth every Unknown 180mg day Tablets Magnesium 1 by mouth every Unknown 250mg Tablets day Furosemide 2 by mouth every Unknown 20mg Tablets day Nortriptyline HCL 3 tab by mouth Unknown 50mg daily every night Capsules Etodolac take 1 tablet by Unknown 400mg Tablets mouth three times daily for inflammation and pain Omeprazole 1 tablet by mouth Unknown 40mg twice daily Capsules DR Vitamin D3 Maximum 1 by mouth every Unknown Strength day 5000Unit Capsules Levothyroxine Sodium 1 by mouth every Unknown day 100mcg Solution Rec History Medications Meloxicam 1 by mouth 30tabs M25.462 Katie Hall, 08/08/2018 - 15mg Tablets every day M.D. 02/06/2019 Cephalexin 1 capsule by 60caps M25.552 Katie Hall, 01/17/2018 - 500mg Capsules mouth every 8 M.D. 02/06/2018 hours Aspirin 1 tablet by 30tabs M25.552 Katie Hall, 12/20/2017 - 325mg Tablets mouth twice a M.D. 02/06/2018 day x 14 days Hip Kit Hip Kit 1units Katie Hall, 12/15/2017 - M.D. 02/06/2019 Bed Rail Bed Rail 1units Katie Hall, 12/15/2017 - M.D. 02/06/2019 Oxycodone-Acetaminophen 1-2 tabs by 60tabs Katie Hall, 12/03/2017 - 5-325mg mouth every 4-6 M.D. 02/06/2018 Tablets hours as needed for post-op pain Warfarin Sodium take 1-3 tabs 90tabs Katie Hall, 12/03/2017 - 2mg Tablets by mouth at 5pm M.D. 02/06/2018 nightly Sulfamethoxazole/Trimethop take one tab by 6tabs Katie Hall, 2017 - rim DS mouth twice a M.D. 03/10/2018 800-160mg Tablets day for 3 days Tramadol HCL 1 tab twice a 20tabs Katie Hall, 11/24/2017 - 50mg Tablets day as needed M.D. 03/10/2018 for pain Bactrim DS take 1 by mouth 6tabs Katie Hall, 04/26/2017 - 800-160mg Tablets twice a day for M.D. 11/15/2017 3 days Cyclobenzaprine HCL 1 tablet by 30tabs M25.552 Katie Hall, 04/23/2017 - 10mg Tablets mouth at M.D. 11/15/2017 bedtime as needed muscle spasms Nortriptyline HCL take one Unknown 02/01/2017 - 75mg Capsules capsule by 11/15/2017 mouth every day at bedtime Allergy Medication Unknown - 02/06/2019 Nabumetone Unknown - 08/08/2018 Nortriptyline HCL take one Unknown - 100mg Capsules capsule by 02/06/2019 mouth at bedtime Diclofenac Sodium ER 1 tablet po Unknown - 100mg daily 11/15/2017 Tablets ER 24HR Diphenhydramine HCL 1 tab by mouth Unknown - 25mg Capsules twice daily prn 02/06/2019 Nortriptyline HCL 1 by mouth Unknown - 25mg Capsules every night at 11/27/2015 bedtime Meloxicam once daily with Unknown - 15mg Tablets food 09/18/15 pt 11/27/2015 called to say she is no longer taking) [facility] [employer] 1 by mouth Unknown - Health every day 08/26/2015 Capsules Cholestyramine 1 packet daily Unknown - 4gm Packet 02/06/2018 Naproxen 1 tablet po Unknown - 500mg Tablets b.i.d 02/01/2017 Nystatin-Triamcinolone apply small Unknown - amount on 11/27/2015 036682-1.1Unit/GM-% Cream affected areas twice a day x 10 days Hydrochlorothiazide 1 by mouth Unknown - 25mg Tablets every day 02/06/2019 Medications Administered in Office Medication SIG Qnty Indications Ordering Provider Date Depomedrol 40MG Katie Hall M.D. 03/11/2018 Injection Depomedrol 40MG Katie Hall M.D. 03/11/2018 Injection Inj, Regadenoson, 0.1 MG Donal Lazo, DO [facility] 10/22/2015 Injection Inj, Regadenoson, 0.1 MG Qutaybeh S. Maghaydah, 10/22/2015 Injection M.D. Aminophylline Donal Lazo, DO [facility] 10/22/2015 Injection Aminophylline Qutaybeh S. Maghaydah, 10/22/2015 Injection M.D. Technetium TC 99M Donal Lazo, DO [facility] 10/22/2015 Tetrofosmin, Per Unit Dose Up To 40 Millicuries Injection Technetium TC 99M Qutaybeh S. Maghaydah, 10/22/2015 Tetrofosmin, Per Unit Dose Up M.D. To 40 Millicuries Injection Immunizations Description No Information Available Vital Signs Date Vital Result Comment 02/17/2019 1:08pm BP Systolic 104 mmHg BP Diastolic 74 mmHg Respiratory Rate 16 /min Body Temperature 98.3 F 02/07/2019 2:44pm Height 66 inches 5'6" Weight 206.25 lb with shoes Heart Rate 80 /min BP Systolic Sitting 118 mmHg ule reg cuff BP Diastolic Sitting 76 mmHg ule reg cuff BMI (Body Mass Index) 33.3 kg/m2 Ejection Fraction 50-55% Echo 01/23/19 08/15/2018 2:22pm Height 66 inches 5'6" Weight 201.12 lb Heart Rate 78 /min BP Systolic 98 mmHg BP Diastolic 58 mmHg Respiratory Rate 16 /min Body Temperature 97.6 F Pain Level 6 epigastric pain O2 % BldC Oximetry 96 % BMI (Body Mass Index) 32.5 kg/m2 08/08/2018 2:44pm Height 66 inches 5'6" Heart Rate 88 /min Respiratory Rate 18 /min Body Temperature 98.6 F Pain Level 8 07/22/2018 9:56am Height 66 inches 5'6" Weight 199.00 lb BP Systolic 117 mmHg BP Diastolic 76 mmHg Respiratory Rate 16 /min Pain Level 7 BMI (Body Mass Index) 32.1 kg/m2 04/11/2018 3:58pm Height 66 inches 5'6" Weight 189.00 lb Heart Rate 80 /min BP Systolic 102 mmHg BP Diastolic 55 mmHg Body Temperature 97.5 F BMI (Body Mass Index) 30.5 kg/m2 03/11/2018 1:46pm Height 66 inches 5'6" Weight 194.00 lb Heart Rate 72 /min BP Systolic 116 mmHg BP Diastolic 60 mmHg BMI (Body Mass Index) 31.3 kg/m2 02/07/2018 11:52am Heart Rate 80 /min BP Systolic 110 mmHg BP Diastolic 68 mmHg Body Temperature 98.7 F Pain Level 0 01/17/2018 11:45am Height 66 inches 5'6" Heart Rate 77 /min BP Systolic 110 mmHg BP Diastolic 76 mmHg Respiratory Rate 18 /min Body Temperature 95.8 F Pain Level 0 12/20/2017 12:09pm Height 66 inches 5'6" Weight 195.00 lb BP Systolic 118 mmHg BP Diastolic 78 mmHg Body Temperature 98.2 F Pain Level 9 BMI (Body Mass Index) 31.5 kg/m2 11/24/2017 11:30am Height 66 inches 5'6" Heart Rate 79 /min BP Systolic 128 mmHg BP Diastolic 82 mmHg Respiratory Rate 16 /min Body Temperature 97.3 F Pain Level 8 11/16/2017 12:54pm Height 66 inches 5'6" Weight 188.25 lb without shoes Heart Rate 78 /min BP Systolic 130 mmHg L/Arm Reg Cuff BP Diastolic 70 mmHg L/Arm Reg Cuff BMI (Body Mass Index) 30.4 kg/m2 Ejection Fraction 55-60% Echocardiogram 02/03/2017 11/10/2017 11:41am Weight 184.00 lb 11/10/2017 11:37am Heart Rate 68 /min BP Systolic Sitting 128 mmHg BP Diastolic Sitting 70 mmHg Respiratory Rate 16 /min Body Temperature 96.7 F Pain Level 8 04/23/2017 11:52am Height 66 inches 5'6" Weight 181.00 lb Heart Rate 80 /min BP Systolic 107 mmHg BP Diastolic 57 mmHg Body Temperature 97.9 F BMI (Body Mass Index) 29.2 kg/m2 03/24/2017 11:43am Height 66 inches 5'6" Weight 183.00 lb BP Systolic 135 mmHg BP Diastolic 83 mmHg Respiratory Rate 15 /min Body Temperature 96.9 F Pain Level 8 BMI (Body Mass Index) 29.5 kg/m2 02/22/2017 1:31pm Height 66 inches 5'6" Weight 183.00 lb Heart Rate 78 /min BP Systolic 118 mmHg BP Diastolic 82 mmHg Respiratory Rate 16 /min Pain Level 9 BMI (Body Mass Index) 29.5 kg/m2 02/02/2017 2:13pm Height 66 inches 5'6" Weight 183.25 lb with shoes Heart Rate 80 /min BP Systolic Sitting 122 mmHg LA lrg cuff BP Diastolic Sitting 86 mmHg LA lrg cuff BMI (Body Mass Index) 29.6 kg/m2 Ejection Fraction 54% echo 10/22/15 07/15/2016 11:36am Height 66 inches 5'6" Weight 197.00 lb Respiratory Rate 16 /min Pain Level 7 BMI (Body Mass Index) 31.8 kg/m2 06/19/2016 3:11pm Height 66 inches 5'6" Weight 197.00 lb Heart Rate 81 /min BP Systolic 112 mmHg BP Diastolic 66 mmHg BMI (Body Mass Index) 31.8 kg/m2 11/28/2015 1:26pm Height 66 inches 5'6" Weight 210.25 lb with shoes Heart Rate 84 /min BP Systolic Sitting 128 mmHg LA lg cuff BP Diastolic Sitting 76 mmHg LA lg cuff Respiratory Rate 17 /min BMI (Body Mass Index) 33.9 kg/m2 Ejection Fraction 50-55% date 09/20/15 ECHO 08/27/2015 12:58pm Height 66 inches 5'6" Weight 208.50 lb with shoes Heart Rate 66 /min BP Systolic Sitting 130 mmHg LA reg cuff BP Diastolic Sitting 84 mmHg LA reg cuff Respiratory Rate 16 /min BMI (Body Mass Index) 33.6 kg/m2 Results Test Date Facility Test Result H/L Range Note CBC Auto Diff 01/14/2018 [facility] White Blood 9.8 10^3/uL N 3.5-10.[address] [place] [address] [phone] Red Blood Count 3.95 10^6/uL Low 4.0-5.4 Hemoglobin 10.8 g/dL Low 12.0-16.0 Hematocrit 33 % Low 35-47 Mean Corpuscular Volume 83 fL N 80-97 Mean Corpuscular Hemoglobin 27 pg N 27-31 Mean Corpuscular HGB Conc 33 g/dL N 31-36 Red Cell Distribution Width 15 % N 10.5-15 Platelet Count 382 10^3/uL N 150-450 Mean Platelet Volume 7.4 um3 N 7.4-10.4 Abs Neutrophils 5.9 10^3/uL N 1.5-7.7 Abs Lymphocytes 2.4 10^3/uL N 1.0-4.8 Abs Monocytes 0.9 10^3/uL High 0-0.8 Abs Eosinophils 0.6 10^3/uL N 0-0.6 Abs Basophils 0.1 10^3/uL N 0-0.2 Abs Nucleated RBC 0 10^3/uL Granulocyte % 60.5 % N 38-83 Lymphocyte % 24.3 % Low 25-47 Monocyte % 8.8 % High 0-7 Eosinophil % 5.8 % N 0-6 Basophil % 0.6 % N 0-2 Nucleated Red Blood Cells % 0 CBC Auto Diff 11/24/2017 [facility] White Blood 10.1 10^3/uL N 3.5-10.[address] [place] [address] [phone] Red Blood Count 4.42 10^6/uL N 4.0-5.4 Hemoglobin 12.8 g/dL N 12.0-16.0 Hematocrit 37 % N 35-47 Mean Corpuscular Volume 84 fL N 80-97 Mean Corpuscular Hemoglobin 29 pg N 27-31 Mean Corpuscular HGB Conc 34 g/dL N 31-36 Red Cell Distribution Width 14 % N 10.5-15 Platelet Count 375 10^3/uL N 150-450 Mean Platelet Volume 7 um3 Low 7.4-10.4 Abs Neutrophils 7.1 10^3/uL N 1.5-7.7 Abs Lymphocytes 2.0 10^3/uL N 1.0-4.8 Abs Monocytes 0.6 10^3/uL N 0-0.8 Abs Eosinophils 0.3 10^3/uL N 0-0.6 Abs Basophils 0.2 10^3/uL N 0-0.2 Abs Nucleated RBC 0 10^3/uL Granulocyte % 70.3 % N 38-83 Lymphocyte % 19.9 % Low 25-47 Monocyte % 5.8 % N 1-9 Eosinophil % 2.5 % N 0-6 Basophil % 1.5 % N 0-2 Nucleated Red Blood Cells % 0 Inr/Protime 11/24/2017 [facility] Inr 0.86 N 0.77-1.[address] [place] [address] [phone] Laboratory test 11/24/2017 [facility] Partial 28.5 seconds N 26.0-36.[address] [place] [address] PTT [phone] Urinalysis 11/24/2017 [facility] Urine Color Yellow Profile [address] [place] [address] [phone] Urine Appearance Cloudy Urine Specific [place] 1.017 N 1.010-1.030 Urine pH 5.0 N 5-9 Urine Urobilinogen Negative Negative Urine Ketones Negative Negative Urine Protein 2+(100 mg/dL) Abnormal Negative Urine Leukocytes 3+ Abnormal Negative Urine Blood 3+ Abnormal Negative Urine Nitrite Positive Abnormal Negative Urine Bilirubin Negative Negative Urine Glucose Negative Negative Urine White Blood Cell 3+(>20/hpf) Abnormal Absent Urine Red Blood Cell 3+(>10/hpf) Abnormal Absent Urine Bacteria 1+ Abnormal Absent Urine Squamous Epithelial Cell Present Abnormal Absent Urine Culture And 11/24/2017 [facility] Urine Culture SEE RESULT [address] [place] [address] [phone] Comp Metabolic 11/24/2017 [facility] Sodium 138 mmol/L N 133- [address] [place] [address] [phone] Potassium 3.4 mmol/L Low 3.5-5.0 Chloride 98 mmol/L Low 101-111 Co2 Carbon Dioxide 33 mmol/L High 22-32 Anion Gap 7 mmol/L N 2-11 Glucose 92 mg/dL N 70-100 Blood Urea Nitrogen 16 mg/dL N 6-24 Creatinine 0.84 mg/dL N 0.51-0.95 BUN/Creatinine Ratio 19.0 N 8-20 Calcium 9.3 mg/dL N 8.6-10.3 Total Protein 7.3 g/dL N 6.4-8.9 Albumin 4.0 g/dL N 3.2-5.2 Globulin 3.3 g/dL N 2-4 Albumin/Globulin Ratio 1.2 N 1-3 Total Bilirubin 0.40 mg/dL N 0.2-1.0 Alkaline Phosphatase 96 U/L N 34-104 Alt 15 U/L N 7-52 Ast 19 U/L N 13-39 Egfr Non- 72.7 >60 Egfr 93.5 >60 2 Type & Screen 11/24/2017 [facility] Patient Blood Type A Positive [address] [place] [address] [phone] Antibody Screen NEGATIVE Urinalysis Profile 04/23/2017 [facility] Urine Color [place] N [address] [place] [address] [phone] Urine Appearance Cloudy N Urine Specific [place] 1.019 N 1.010-1.030 Urine pH 5.0 N 5-9 Urine Urobilinogen Negative N Negative Urine Ketones Negative N Negative Urine Protein 2+(100 mg/dL) Abnormal Negative Urine Leukocytes 3+ Abnormal Negative Urine Blood 2+ Abnormal Negative Urine Nitrite Positive Abnormal Negative Urine Bilirubin Negative N Negative Urine Glucose Negative N Negative Urine White Blood Cell 3+(>20/hpf) Abnormal Absent Urine Red Blood Cell 3+(>10/hpf) Abnormal Absent Urine Bacteria 1+ Abnormal Absent Urine Squamous Epithelial Cell Present Abnormal Absent Urine Culture And 04/23/2017 [facility] Urine Culture SEE RESULT [address] [place] [address] [phone] Type & Screen 04/23/2017 [facility] Patient Blood A Positive N [address] [place] [address] [phone] Antibody Screen NEGATIVE N Laboratory test 04/23/2017 [facility] Partial 28.1 seconds N 26.0-36.[address] [place] [address] PTT [phone] Inr/Protime 04/23/2017 [facility] Inr 0.91 N 0.89-1.[address] [place] [address] [phone] 1 SEE RESULT BELOW Name: ELIOT CARRINGTON : [address]: Katie Hall MD Acct: [id number] Unit: [id number] AGE: 47 Location: [facility] Re11/24/17 SEX: F Status: REG REF SPEC: [id number] LISANDRO: 11/24/17 [facility] DR: Katie Hall MD REQ: [id number] RECD: 11/24/17 STATUS: COMP _ SOURCE: URINE SPDESC: ORDERED: Urine Culture QUERIES: Urine Source: Clean Catch Procedure Result Reported Site Urine Culture Final 11/26/17- 0857 ML Organism 1 STAPHYLOCOCCUS AUREUS [place] Count >100,000 (Many) CFU/ML 1. STAPHYLOCOCCUS AUREUS M.I.C. RX --------- ------ Penicillin <=0.03 S Gentamicin <=0.5 S Linezolid 2 S Nitrofurantoin <=16 S Oxacillin <=0.25 S * Quinupristin/Dalfopristin <=0.25 S Rifampin <=0.5 S Tetracycline <=1 S Doxycycline - Deduced S * Minocycline - Deduced S Trimethoprim/Sulfamethoxazole <=10 S Vancomycin 1 S Imipenem-Deduced S * Ampicillin/Sulbactam-Deduced S Cefazolin-Deduced S * These antibiotics are not available in the [facility] Formulary Contact the Microbiology Department for any additional antibiotic reporting. * ML - MAIN LAB ([facility]) . END OF REPORT * ML=Testing performed at Main Lab DEPARTMENT OF PATHOLOGY, [address] [place] [address] Augustine Stacy M.D. Director [facility] # [id number] 2 Because ethnic data is not always readily [...] 15-29 5 Kidney failure <15 (or dialysis) 3 SEE RESULT BELOW Name: ELIOT CARRINGTON : [address]: Katie Hall MD Acct: [id number] Unit: [id number] AGE: 46 Location: [facility] Re04/23/17 SEX: F Status: REG REF SPEC: [id number] LISANDRO: 04/23/17 [facility] DR: Katie Hall MD REQ: [id number] RECD: 04/23/17 STATUS: SALLY ELLER DR: Amira Fernández HOT TAR ROOFER _ SOURCE: URINE SPDESC: ORDERED: Urine Culture QUERIES: Urine Source: Clean Catch Procedure Result Reported Site Urine Culture Final 04/25/17- 0821 ML Organism 1 ESCHERICHIA COLI [place] Count >100,000 (Many) CFU/ML Organism 2 NORMAL HARDEEP [place] Count 1-10,000 (Few) CFU/ML 1. ESCHERICHIA COLI [...] antibiotic reporting. * ML - MAIN LAB ([facility]) . END OF REPORT * ML=Testing performed at Main Lab DEPARTMENT OF PATHOLOGY, [address] [place] [address] Augustine Stacy M.D. Director [facility] # [id number] Procedures Date Code Description Status 02/07/2019 20902 EKG Tracing & Interpretation Completed 01/23/2019 74869 ECHO Transthoracic, Real-Time 2D With Doppler And Color Completed Flow 01/23/2019 85127 ECHO Transthoracic, Real-Time 2D With Doppler And Color Completed Flow 03/11/2018 73299 Inject/Drain Joint/Bursa Major W/O US Completed 12/07/2017 45728 THR Total Hip Replacement Completed 12/07/2017 13014 THR Total Hip Replacement Completed 12/07/2017 83060 THR Total Hip Replacement Completed 12/07/2017 85866 THR Total Hip Replacement Completed 11/16/2017 96218 EKG Tracing & Interpretation Completed 03/31/2017 98997 Removal Devitalization Tissue Wound Less Than Equal 20 Completed Square CM 02/03/2017 24271 ECHO Transthoracic, Real-Time 2D With Doppler And Color Completed Flow 02/02/2017 56239 EKG Tracing & Interpretation Completed 07/17/2016 47712 Application Of Multi-Layer Venous Wound Compression, Below Completed Knee 10/22/2015 40524 Treadmill Interp/Report Only Completed 10/22/2015 16979 Stress Test Supervsn W/Out I/R Completed 10/22/2015 61575 Stress Test Completed 10/22/2015 85311 Myocardial Perfusion Imaging Tomographic (Spect) Multiple Completed Studies 09/20/2015 28035 ECHO Transthoracic, Real-Time 2D With Doppler And Color Completed Flow 09/18/2015 72345 EKG Tracing & Interpretation Completed 08/27/2015 91414 EKG Tracing & Interpretation Completed 08/18/2013 43358 Xray Knee 3 Views Completed 06/16/2011 30707 Stress ECHO Interpretation/Report Hospital Completed 06/16/2011 67200 Treadmill Interp/Report Only Completed 06/16/2011 56380 Stress Test Supervsn W/Out I/R Completed 06/16/2011 27388 EKG, Interpretation Only Completed Encounters Type Date Location Provider Dx Diagnosis Office Visit 02/17/2019 Orthopedic Katie Hall, M25.552 Pain in left hip 1:15p Services Of Seth Rich M54.32 Sciatica, left side Z96.642 Presence of left artificial hip joint Office Visit 02/07/2019 3:00p Maya Perez R07.9 Chest pain, Cardiology Layla Momin unspecified R42 Dizziness and giddiness R94.31 Abnormal electrocardiogram [ECG] [EKG] E66.9 Obesity, unspecified Z87.891 Personal history of nicotine dependence Office 08/15/2018 [facility] Gastroenterology Anyi K21.9 Gastro-esophageal Visit 1:30p SHONNA Brunson reflux disease without esophagitis I36.1 Nonrheumatic tricuspid (valve) insufficiency R07.9 Chest pain, unspecified Office Visit 08/08/2018 2:30p Orthopedic Services Katie Hall M25.562 Pain in left Of C.M.A. M.D. knee M25.462 Effusion, left knee M17.12 Unilateral primary osteoarthritis, left knee Office Visit 07/22/2018 9:45a Orthopedic Katie M17.0 Bilateral primary Services Of Layla Hall osteoarthritis of C.M.A. knee M25.561 Pain in right knee M25.461 Effusion, right knee M25.462 Effusion, left knee M25.562 Pain in left knee W19.xxxA Unspecified fall, initial encounter Office Visit 04/11/2018 Orthopedic Katie M79.605 Pain in left leg 3:45p Services Of Layla Hall C.M.A. Office Visit 03/11/2018 Orthopedic Katie M17.0 Bilateral primary 2:00p Services Of Layla Hall osteoarthritis of C.M.A. knee M25.561 Pain in right knee M25.562 Pain in left knee M25.461 Effusion, right knee M25.462 Effusion, left knee M79.605 Pain in left leg Office Visit 11/16/2017 [facility] Liboriojorge SaavedraAnahi Z01.810 Encounter for 1:10p Cardiology Layla Momin preprocedural cardiovascular examination R07.9 Chest pain, unspecified I36.1 Nonrheumatic tricuspid (valve) insufficiency R94.31 Abnormal electrocardiogram [ECG] [EKG] M16.11 Unilateral primary osteoarthritis, right hip Office Visit 11/10/2017 11:30a Orthopedic Services Katie Hall M25.552 Pain in left Of C.M.A. M.D. hip M16.12 Unilateral primary osteoarthritis, left hip Office Visit 03/24/2017 11:15a Orthopedic Services Katie Rafael, M25.552 Pain in left Of C.M.A. M.D. hip M16.12 Unilateral primary osteoarthritis, left hip S81.802A Unspecified open wound, left lower leg, initial encounter Office Visit 02/22/2017 1:15p Orthopedic Services Katie Hall, M25.552 Pain in left Of C.M.A. M.D. hip M16.12 Unilateral primary osteoarthritis, left hip Office Visit 02/02/2017 3:00p [facility] Aishataybjorge S. R06.02 Shortness of Gilda Momin. breath R07.9 Chest pain, unspecified I36.1 Nonrheumatic tricuspid (valve) insufficiency E66.9 Obesity, unspecified Z68.29 Body mass index (BMI) 29.0-29.9, adult R94.31 Abnormal electrocardiogram [ECG] [EKG] Office Visit 07/17/2016 4:04p Wound Care Claire Vazquez, S81.802D Unspecified open [facility] [place] [employer], [employer] wound, left lower leg, subsequent encounter L97.821 Non-prs chr ulcer oth prt l low leg limited to brkdwn skin Office Visit 07/15/2016 11:30a Orthopedic Services Katie Hall, M25.552 Pain in left Of C.M.A. M.D. 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 M.D. knee M25.552 Pain in left hip M16.12 Unilateral primary osteoarthritis, left hip Office Visit 11/28/2015 1:40p Maya Martinez S. R07.9 Chest pain, Cardiology Layla Momin unspecified R06.02 Shortness of breath I36.1 Nonrheumatic tricuspid (valve) insufficiency Office Visit 08/27/2015 1:40p Maya Martinez S. R07.9 Chest pain, Cardiology Layla Momin unspecified R94.31 Abnormal electrocardiogram [ECG] [EKG] R06.02 Shortness of breath Office Visit 10/16/2013 9:00a Orthopedic Katie 715.36 Osteoarthrosis Services Of Layla Hall Not Spec C.M.A. 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 at [facility]02/17/2019 - Katie Hall M.D.M25.552 Pain in left hipNew Xrays:Hip Left 2 Views And Pelvis [phone] - [phone], Ordered: 02/17/19Referral: Ken Mckinney MD, Surgery,NeurologicalFollow up:Follow up: 1 yearM54.32 Sciatica, left sideZ96.642 Presence of left artificial hip joint
--- NOTE | 2019-02-18 19:29 | ED ---
Skin Complaint - HPI Summary HPI Summary: 48-year-old female presents with rash for the past week. She states that she has a recurrent rash since 1999 on her left diallo. States that it seems to get better with Neosporin and then goes away and then comes back. She is not sure when the wound opened up. she has been having purulent drainage. She denies any fevers or chills. She's also has other lesions across the body. She denies any known history of MRSA. She has followed up with the wound clinic for the wound on her diallo. She cannot use compression socks as it causes a rash. She states part of the rash on her shins is due to using Band-Aids to cover the wound. She has chronic edema in her legs. She is not diabetic. - History of Current Complaint Chief Complaint: EDSoftTissueLowExtr Time Seen by Provider: 02/18/19 18:59 Stated Complaint: INFECTION ON BOTH LEGS PER PT Pain Intensity: 9 - Additional Pertinent History Primary Care Physician: [facility] - Allergy/Home Medications Allergies/Adverse Reactions: Allergies Allergy/AdvReac Type Severity Reaction Status Date / Time Adhesive Tape Allergy Severe rash, itchy Verified 01/09/19 09:51 nitrofurantoin Allergy Rash Verified 01/09/19 09:51 control Allergy Severe nauseated Uncoded 01/09/19 09:51 Home Medications: Home Medications Furosemide 40 mg PO DAILY 02/18/19 [History Confirmed 02/18/19] PMH/Surg Hx/FS Hx/Imm Hx Endocrine/Hematology History: Reports: Hx Thyroid Disease, Hx Anemia - hx of blood transfusion Denies: Hx Diabetes Cardiovascular History: Reports: Hx Valvular Heart Disease - Nonrheumatic tricuspid (valve) insufficiency Denies: Hx Hypertension, Hx Pacemaker/ICD, Other Cardiovascular Problems/ Disorders Respiratory History: Denies: Other Respiratory Problems/Disorders GI History: Reports: Hx Gastroesophageal Reflux Disease, Other GI Disorders - Colecystectomy. Can be constipated or have diarrhea. Denies: Hx Crohn's Disease History: Reports: Hx Kidney Stones - in past , none recent, Other Problems /Disorders - states she has bleeding from her crotch area when she walks too much Denies: Hx Dialysis, Hx Renal Disease Musculoskeletal History: Reports: Hx Arthritis - OSTEOARTHRITIS, Hx Osteoporosis , Other Musculoskeletal History - Scoliosis, Degenerative Joint Disease Sensory History: Reports: Hx Contacts or Glasses Denies: Hx Hearing Aid Opthamlomology History: Reports: Hx Contacts or Glasses Neurological History: Reports: Hx CVA, Other Neuro Impairments/Disorders - DEVELOPMENTAL DELAY Psychiatric History: Reports: Hx Anxiety - as a teenager, Hx Depression - as a teenager Denies: Hx Panic Disorder, Other Psychiatric Issues/Disorders - Cancer History Cancer Type, Location and Year: OVARIAN CARCINOMA. CERVICAL CARCINOMA Hx Chemotherapy: No - Surgical History Surgery Procedure, Year, and Place: OVERY REMOVAL,HYSTERECTOMY,GB,LT HIP REPLACEMENT Hx Anesthesia Reactions: No Infectious Disease History: No Infectious Disease History: Denies: History Other Infectious Disease, Traveled Outside the [place] in Last 30 Days - Family History Known Family History: Positive: Cardiac Disease - Social History Alcohol Use: None Substance Use Type: Reports: None Smoking Status (MU): Former Smoker Amount Used/How Often: smoked for 4 years 3-4 cig a day Review of Systems Negative: Fever, Chills Negative: Chest Pain Negative: Shortness Of Breath Positive: Rash All Other Systems Reviewed And Are Negative: Yes Physical Exam Triage Information Reviewed: Yes Vital Signs On Initial Exam: Initial Vitals Temp Pulse Resp BP Pulse Ox 98 F 90 16 138/77 98 02/18/19 18:00 02/18/19 18:00 02/18/19 18:00 02/18/19 18:00 02/18/19 18:00 Vital Signs Reviewed: Yes Appearance: Positive: Well-Appearing Skin: Positive: Warm, Dry, Other - ulcer type lesion of left diallo with surround erythema, has erythema of right leg in addition, has abrasion type rash near groin Head/Face: Positive: Normal Head/Face Inspection Eyes: Positive: Normal, Conjunctiva Clear ENT: Positive: Pharynx normal, Other - has lesion on bilateral ears Respiratory/Lung Sounds: Positive: Clear to Auscultation, Breath Sounds Present Cardiovascular: Positive: Normal, RRR Abdomen Description: Positive: Nontender, Soft Bowel Sounds: Positive: Present Musculoskeletal: Positive: Normal Neurological: Positive: Normal Psychiatric: Positive: Normal Diagnostics - Vital Signs Vital Signs Temp Pulse Resp BP Pulse Ox 02/18/19 18:00 98 F 90 16 138/77 98 - Laboratory Result Diagrams: 02/18/19 19:35 02/18/19 19:35 Lab Statement: Any lab studies that have been ordered have been reviewed, and results considered in the medical decision making process. Re-Evaluation - Re-Evaluation First Eval Re-Evaluation Time: 20:51 Comment: discussed results, patient wants to go home, right wound has opened up so got a culture Course/Dx - Course Course Of Treatment: 48-year-old female presents with rash for the past week. She states that she has a recurrent rash since 1999 on her left diallo. States that it seems to get better with Neosporin and then goes away and then comes back. She is not sure when the wound opened up. she has been having purulent drainage. She denies any fevers or chills. She's also has other lesions across the body. She denies any known history of MRSA. She has followed up with the wound clinic for the wound on her diallo. She cannot use compression socks as it causes a rash. She states part of the rash on her shins is due to using Band-Aids to cover the wound. She has chronic edema in her legs. She is not diabetic. On exam has a 3 cm x 2 cm ulcer of left leg with surrounding erythema. He also has erythema on the right leg. Has lesions on bilateral ears. gave dose of clindamycin. wbc 15. lactic normal. vitals normal. wound positive for staph. discussed will have place on clindamycin and bactrician and have follow up with wound clinc as patient goes not want to be admitted. warned if redness spreads or if develop fever to return. patient understand and agrees with plan. - Differential Diagnoses - Skin Complaint Differential Diagnoses: Abscess, Cellulitis, Contact Dermatitis - Diagnoses Provider Diagnoses: Cellulitis Discharge - Sign-Out/Discharge Documenting (check all that apply): Patient Departure Patient Received Moderate/Deep Sedation with Procedure: No - Discharge Plan Condition: Good Disposition: HOME Prescriptions: Bacitracin OINTMENT* 1 applic TOPICAL BID #1 tube Clindamycin Cap(NF) [Clindamycin Cap 300 mg Cap(NF)] 300 mg PO TID #29 cap Patient Education Materials: Cellulitis (ED) Referrals: Amira Fernández NP [Primary Care Provider] - Jimmy Mata MD [Medical Doctor] - Additional Instructions: Take clindamycin three times a day for 10 days, first dose given in ED Elevate extremity Take Tylenol every 6 hours for pain Follow up with wound clinic apply bactrician to wound and keep covered Return to ED if redness spreads, develop fever, or any new or worsening symptoms - Billing Disposition and Condition Condition: GOOD Disposition: Home
[2019-02-18 19:45] LABS: ABS Basophils 0.1 10^3/ul (0-0.2); ABS Eosinophils 0.3 10^3/ul (0-0.6); ABS Lymphocytes 2.1 10^3/ul (1.0-4.8); ABS Monocytes 0.8 10^3/ul (0-0.8); ABS Neutrophils 12.2 10^3/ul (1.5-7.7); Eosinophil % 2.1 %; Hematocrit 36 % (35-47); Hemoglobin 11.7 g/dL (12.0-16.0); Lymphocyte % 13.7 %; Mean Corpuscular HGB Conc 33 g/dL (31-36); Mean Corpuscular Hemoglobin 28 pg (27-31); Mean Corpuscular Volume 85 fL (80-97); Mean Platelet Volume 7.3 fL (7.4-10.4); Platelet Count 379 10^3/uL (150-450); Red Blood Count 4.22 10^6 /uL (3.70-4.87); Red Cell Distribution Width 15 % (10.5-15); White Blood Count 15.6 10^3/uL (3.5-10.8)
[2019-02-18 19:57] LABS: Activated Partial Thrombo Time 28.7 seconds (26.0-36.3); INR 1.08 (0.82-1.09)
[2019-02-18 20:00] LABS: Albumin 3.8 g/dL (3.2-5.2); Albumin/Globulin Ratio 1.1 (1-3); Calcium 9.7 mg/dL (8.6-10.3); EGFR African American 87.6 (>60); EGFR Non-African American 72.4 (>60); Globulin 3.6 g/dL (2-4); Potassium 3.2 mmol/L (3.5-5.0); Total Bilirubin 0.7 mg/dL (0.2-1.0); Total Protein 7.4 g/dL (6.4-8.9)
[2019-02-18 20:27] LABS: C Reactive Protein 82.99 mg/L (<8.01)
[2019-02-18 22:34] VITALS: BP 101/59
--- NOTE | 2019-02-20 08:10 | PN ---
Progress Note - Progress Note Date of Service: 02/18/19 Note: Wound culture preliminary grew staph aureus positive and strep pyogenes positive Patient was placed on clindamycin prior to discharge as well as bacitracin We will await sensitivities at this time
--- NOTE | 2019-02-21 08:21 | PN ---
Progress Note - Progress Note Date of Service: 02/18/19 Note: Wound culture final grew staph aureus-positive, MRSA negative Strep pyogenes positive Patient placed on clindamycin prior to discharge Nothing further at this time This is sensitive to organism
== END | disposition home or self-care (01) ==
LOC: ED 17:57
DX: L03.90 Cellulitis, unspecified (principal); E07.9 Disorder of thyroid, unspecified; D64.9 Anemia, unspecified; I38 Endocarditis, valve unspecified; I36.1 Nonrheumatic tricuspid (valve) insufficiency; K21.9 Gastro-esophageal reflux disease without esophagitis; Z87.891 Personal history of nicotine dependence; Z88.1 Allergy status to other antibiotic agents; Z88.8 Allergy status to other drugs, medicaments and biological substances; Z91.048 Other nonmedicinal substance allergy status
CPT/HCPCS: 36415; 80053; 83605; 85025; 85610; 85730; 86140; 87040; 87070; 87077; 87186; 87205; 87640; 87641; 96361; 96365; 99284